=== PATIENT | male | born 1945 | race Hispanic/Latino ===

== ENCOUNTER 2017-12-10 10:37 | Emergency (ER) | payer MEDICARE ==
[~2017-12-10 10:37] MED LIST: AMLO5TAB2 PO; AMOX-429 PO; BACL20TA PO; BISA10S PR; CLON0.1T PO; CRAN200C5 PO; DOCU-132 PO; L.AC1CAP6 PO; LEVO150T11 PO; OMEP40CA37 PO; OXYB5 PO; PRAV40TA3 PO; SUNI25CA2 PO
[2017-12-10 11:49] LABS: BASOPHILS % (AUTO) 0.4 % (0.0-5.0); EOSINOPHILS % (AUTO) 6.2 % (0.0-8.0); HEMATOCRIT 35.1 % (42-54); LYMPHOCYTES % (AUTO) 25.9 % (21.0-51.0); MEAN CORPUSCULAR HEMOGLOBIN 31.3 pg (27.0-33.0); MEAN CORPUSCULAR HGB CONC 34.2 g/dL (32.0-36.0); MEAN CORPUSCULAR VOLUME 91.5 fL (79-99); MONOCYTES % (AUTO) 7.2 % (3.0-13.0); NEUTROPHILS % (AUTO) 60.3 % (40.0-77.0); NUCLEATED RED BLOOD CELLS 0.1 % (0.0-0.19); PLATELET COUNT (AUTO) 133 K/uL (130-400); RED BLOOD CELL COUNT(AUTO) 3.84 MIL/uL (4.50-6.20); RED CELL DISTRIBUTION WIDTH 17.8 % (11.0-15.5); WHITE BLOOD COUNT (AUTO) 3.6 K/uL (4.8-10.8)
[2017-12-10 11:57] LABS: CREATININE 1.6 mg/dL (0.5-1.5)
[2017-12-10 11:58] LABS: APPEARANCE,URINE Turbid (CLEAR); BILIRUBIN,URINE Negative (NEGATIVE); COLOR,URINE Dark Yellow (YELLOW); GLUCOSE, URINE (UA) Negative (NEGATIVE); KETONES,URINE Negative (NEGATIVE); LEUKOCYTE ESTERASE ,URINE Large (NEGATIVE); NITRATE,URINE Negative (NEGATIVE); OCCULT BLOOD,URINE Moderate (NEGATIVE); PROTEIN,URINE POS 1+ (NEGATIVE)
[2017-12-10 12:02] LABS: ALBUMIN 3.1 g/dL (3.5-5.0); BILIRUBIN,TOTAL 0.9 mg/dL (0.2-1.0); TOTAL PROTEIN, SERUM 6.7 g/dL (6.0-8.3)
[2017-12-10 12:32] LABS: BACTERIA,URINE Few /HPF (None Seen); RBC,URINE 0-1 /HPF (0-1); SQUAMOUS EPITHELIAL CELL,UR Rare /LPF (0-2); WBC,URINE TNTC /HPF (0-1)
[2017-12-10] MEDS ORDERED: CEFTRIAXONE SODIUM 1 GM ONE (12:43)
[2017-12-10] MEDS ORDERED: SODIUM CHLORIDE 0.9% 1000ML 1,000 ML IV ONE (12:43)
[2017-12-10] MEDS ORDERED: LEVOFLOXACIN 500 MG/D5W 100 ML 100 ML ONE (13:53)
== END 2017-12-10 14:38 | disposition home or self-care (01) ==
LOC: EDH 10:37
DX: N39.0 Urinary tract infection, site not specified (principal); J18.8 Other pneumonia, unspecified organism; Z88.8 Allergy status to other drugs, medicaments and biological substances
CPT/HCPCS: 36415; 71046; 80053; 81001; 83605; 85025; 87804 ×2; 96361; 96365; 96375; 99285; J0696; J1956; J7030

== ENCOUNTER → 2018-03-12 | Outpatient (CLI) | payer MEDICARE | END | disposition home or self-care (01) | LOC: LAB 07:42 | DX: Z51.81 Encounter for therapeutic drug level monitoring (principal); I42.7 Cardiomyopathy due to drug and external agent; C64.9 Malignant neoplasm of unspecified kidney, except renal pelvis | CPT/HCPCS: 93005 ==

== ENCOUNTER → 2018-03-20 | Outpatient (CLI) | payer MEDICARE | END | disposition home or self-care (01) | LOC: RAH 08:10 | DX: Z51.81 Encounter for therapeutic drug level monitoring (principal); I42.7 Cardiomyopathy due to drug and external agent; C64.9 Malignant neoplasm of unspecified kidney, except renal pelvis; I10 Essential (primary) hypertension | CPT/HCPCS: 93306 ==

== ENCOUNTER 2018-09-02 09:55 | Observation (INO) | payer MEDICARE ==
[~2018-09-02] VITALS: Ht 167.6 cm; Wt 80.6 kg
[~2018-09-02 09:55] MED LIST changes: -AMLO5TAB2 PO; +AMLO5TAB7 PO
[2018-09-02 10:36] LABS: BASOPHILS % (AUTO) 1.1 % (0.0-5.0); EOSINOPHILS % (AUTO) 0.4 % (0.0-8.0); HEMATOCRIT 39.4 % (42-54); LYMPHOCYTES % (AUTO) 5.4 % (21.0-51.0); MEAN CORPUSCULAR HEMOGLOBIN 31.7 pg (27.0-33.0); MEAN CORPUSCULAR HGB CONC 34.4 g/dL (32.0-36.0); MEAN CORPUSCULAR VOLUME 92.1 fL (79-99); MONOCYTES % (AUTO) 5.5 % (3.0-13.0); NEUTROPHILS % (AUTO) 87.6 % (40.0-77.0); PLATELET COUNT (AUTO) 146 K/uL (130-400); RED BLOOD CELL COUNT(AUTO) 4.27 MIL/uL (4.50-6.20); RED CELL DISTRIBUTION WIDTH 17.3 % (11.0-15.5); WHITE BLOOD COUNT (AUTO) 7.8 K/uL (4.8-10.8)
[2018-09-02 10:43] LABS: CARBON DIOXIDE 26 mmol/L (21-32); CHLORIDE 105 mmol/L (101-111); CREATININE 1.6 mg/dL (0.5-1.5); GLOMERULAR FILTR. RATE CALC 46 mL/min (>60); GLUCOSE,RANDOM 126 mg/dL (70-105); POTASSIUM 4.1 mmol/L (3.5-5.1); SODIUM SERUM 140 mmol/L (136-145); UREA NITROGEN, BLOOD 23 mg/dL (7-18)
[2018-09-02 10:47] LABS: INR 0.92 (0.85-1.15); PROTHROMBIN TIME 9.7 SEC (9.6-11.6)
[2018-09-02 10:54] LABS: ALANINE AMINOTRANSFERASE 29 U/L (12-78); ALBUMIN 3.5 g/dL (3.5-5.0); ASPARTATE AMINOTRANSFERASE 22 U/L (10-37); BILIRUBIN,TOTAL 0.9 mg/dL (0.2-1.0); CREATINE KINASE, TOTAL 90 U/L (21-232); MYOGLOBIN 137 ng/mL (10-92); TOTAL PROTEIN, SERUM 7.5 g/dL (6.0-8.3); TROPONIN I < 0.04 ng/mL (0.00-0.06)
[2018-09-02] MEDS ORDERED: CEFTRIAXONE SODIUM 1 GM ONE (11:11)
[2018-09-02] MEDS ORDERED: ONDANSETRON HCL 4 MG/2 ML VIAL ONE (11:12)
[2018-09-02] MEDS ORDERED: SODIUM CHLORIDE 0.9% 1000ML 1,000 ML IV ONE (11:12)
[2018-09-02] MEDS ORDERED: SODIUM CHLORIDE 0.9% 50 ML IV ONE (11:13)
[2018-09-02 12:04] LABS: APPEARANCE,URINE Turbid (CLEAR); BILIRUBIN,URINE Negative (NEGATIVE); COLOR,URINE Yellow (YELLOW); GLUCOSE, URINE (UA) Negative (NEGATIVE); KETONES,URINE Negative (NEGATIVE); LEUKOCYTE ESTERASE ,URINE Large (NEGATIVE); NITRATE,URINE Negative (NEGATIVE); OCCULT BLOOD,URINE Moderate (NEGATIVE); PROTEIN,URINE POS 2+ (NEGATIVE)
[2018-09-02 12:35] LABS: BACTERIA,URINE Few /HPF (None Seen); SQUAMOUS EPITHELIAL CELL,UR Few /HPF (0-2); WBC,URINE 51-100 /HPF (0-1)
[2018-09-02] MEDS: SODIUM CHLORIDE 0.9% 1000ML 1,000 ML IV SCH ×2 (14:45→22:23)
[2018-09-02 14:50] VITALS: BP 138/70
[2018-09-02] MEDS ORDERED: CRAN200C5 PO (15:04)
[2018-09-02] MEDS ORDERED: PAZO200T PO (15:04)
[2018-09-02] MEDS ORDERED: SODIUM CHLORIDE 0.9% 1000ML 1,000 ML IV SCH (15:06)
[2018-09-02] MEDS ORDERED: PROCHLORPERAZINE EDISYLATE 10 MG/2 ML VIAL IV PRN (15:15)
[2018-09-02] MEDS ORDERED: ACETAMINOPHEN 325 MG TAB PO PRN ×2 (15:15)
[2018-09-02] MEDS ORDERED: POTASSIUM CHLORIDE 20 MEQ ERTAB PO PRN (15:15)
[2018-09-02] MEDS ORDERED: LACTULOSE 20 GM/30 ML UDCUP PO PRN (15:15)
[2018-09-02] MEDS ORDERED: LIDOCAINE HCL-MPF 1% 2ML VIAL IVP PRN (15:15)
[2018-09-02] MEDS ORDERED: MAG HYDROX/AL HYDROX/SIMETH ES 30 ML SUSP UDCUP PO PRN (15:15)
[2018-09-02] MEDS ORDERED: CEFTRIAXONE SODIUM 1 GM IVP SCH (15:15)
[2018-09-02] MEDS ORDERED: POTASSIUM CHLORIDE 10% ELIXIR 20 MEQ/15 ML UDCUP PO PRN (15:15)
[2018-09-02] MEDS ORDERED: POTASSIUM CHLORIDE 20MEQ/100ML 100 ML IV PRN (15:15)
[2018-09-02 16:59] VITALS: BP 156/76
[2018-09-02 20:17] VITALS: BP 136/85
[2018-09-02] MEDS: DOCUSATE SODIUM 100 MG CAP PO SCH (20:18)
[2018-09-02] MEDS: OXYBUTYNIN CHLORIDE 5 MG TABLET PO SCH (20:19)
[2018-09-02] MEDS ORDERED: FAMOTIDINE 20MG TAB 20 MG TAB PO SCH (21:00)
[2018-09-03 00:10] VITALS: BP 126/77
[2018-09-03 03:40] VITALS: BP 126/73
[2018-09-03] MEDS: SODIUM CHLORIDE 0.9% 1000ML 1,000 ML IV SCH ×2 (03:42→10:34)
[2018-09-03 06:05] LABS: HEMATOCRIT 31.6 % (42-54); MEAN CORPUSCULAR HEMOGLOBIN 31.8 pg (27.0-33.0); MEAN CORPUSCULAR HGB CONC 34.8 g/dL (32.0-36.0); MEAN CORPUSCULAR VOLUME 91.5 fL (79-99); NUCLEATED RED BLOOD CELLS 0.1 % (0.0-0.19); PLATELET COUNT (AUTO) 114 K/uL (130-400); RED BLOOD CELL COUNT(AUTO) 3.46 MIL/uL (4.50-6.20); WHITE BLOOD COUNT (AUTO) 4.7 K/uL (4.8-10.8)
[2018-09-03 06:14] LABS: CREATININE 1.5 mg/dL (0.5-1.5)
[2018-09-03 07:00] VITALS: BP 150/77
[2018-09-03] MEDS ORDERED: LEVOTHYROXINE 150 MCG TABLET PO SCH (07:30)
[2018-09-03] MEDS ORDERED: PANTOPRAZOLE SODIUM 40 MG TABLET.DR PO SCH (08:00)
[2018-09-03] MEDS ORDERED: ENOXAPARIN SODIUM 30 MG/0.3 ML SQ SCH (09:00)
[2018-09-03] MEDS ORDERED: SULF1TAB42 PO (09:01)
[2018-09-03] MEDS: DOCUSATE SODIUM 100 MG CAP PO SCH (10:27)
[2018-09-03] MEDS: OXYBUTYNIN CHLORIDE 5 MG TABLET PO SCH (10:27)
[2018-09-03 11:00] VITALS: BP 152/77
[2018-09-04] MEDS ORDERED: BISACODYL 10 MG SUPP.RECT RC SCH (09:00)
== END 2018-09-03 13:41 | disposition home or self-care (01) ==
LOC: EDH 09:55 → 3BH 13:10
PROVIDERS: ADMIT Internal Medicine; ATTEND Internal Medicine
DX: N39.0 Urinary tract infection, site not specified (principal); E86.0 Dehydration; M62.838 Other muscle spasm; C61 Malignant neoplasm of prostate; C64.1 Malignant neoplasm of right kidney, except renal pelvis; C78.00 Secondary malignant neoplasm of unspecified lung; C79.51 Secondary malignant neoplasm of bone; G81.14 Spastic hemiplegia affecting left nondominant side; N20.0 Calculus of kidney; E78.2 Mixed hyperlipidemia; E03.9 Hypothyroidism, unspecified; K21.9 Gastro-esophageal reflux disease without esophagitis; F13.20 Sedative, hypnotic or anxiolytic dependence, uncomplicated; I70.0 Atherosclerosis of aorta; D69.6 Thrombocytopenia, unspecified; G82.50 Quadriplegia, unspecified; J18.9 Pneumonia, unspecified organism; N28.1 Cyst of kidney, acquired; N31.9 Neuromuscular dysfunction of bladder, unspecified; Z82.49 Family history of ischemic heart disease and other diseases of the circulatory system; Z83.3 Family history of diabetes mellitus; Z85.46 Personal history of malignant neoplasm of prostate; Z85.528 Personal history of other malignant neoplasm of kidney; Z87.442 Personal history of urinary calculi; Z90.5 Acquired absence of kidney
CPT/HCPCS: 36415 ×2; 71045; 74176; 80048; 80053; 81001; 82550; 83605 ×2; 83874; 84484; 85025; 85027; 85610; 85730; 87040; 87077; 87088; 87186; 87804 ×2; 93005; 96360; 96361; 96372; 99285; A4510; A6453; G0378 ×25; J0696; J1650; J2405; J7030 ×2

== ENCOUNTER 2019-01-19 00:57 | Observation (INO) | payer MEDICARE ==
[~2019-01-19] VITALS: Ht 167.6 cm; Wt 80.5 kg
[~2019-01-19 00:57] MED LIST changes: -AMLO5TAB7 PO; -AMOX-429 PO; -CLON0.1T PO; +PAZO200T PO; +SULF1TAB42 PO; -SUNI25CA2 PO
[2019-01-19 01:40] LABS: BASOPHILS % (AUTO) 0.8 % (0.0-5.0); EOSINOPHILS % (AUTO) 0.3 % (0.0-8.0); HEMATOCRIT 40.1 % (42-54); LYMPHOCYTES % (AUTO) 3.2 % (21.0-51.0); MEAN CORPUSCULAR HEMOGLOBIN 28.6 pg (27.0-33.0); MEAN CORPUSCULAR VOLUME 86.6 fL (79-99); MONOCYTES % (AUTO) 3.7 % (3.0-13.0); PLATELET COUNT (AUTO) 162 K/uL (130-400); RED BLOOD CELL COUNT(AUTO) 4.63 MIL/uL (4.50-6.20)
[2019-01-19 01:52] LABS: CREATININE 1.7 mg/dL (0.5-1.5); POTASSIUM 3.8 mmol/L (3.5-5.1)
[2019-01-19 01:57] LABS: ALBUMIN 3.2 g/dL (3.5-5.0); BILIRUBIN,TOTAL 3.4 mg/dL (0.2-1.0); TOTAL PROTEIN, SERUM 7.1 g/dL (6.0-8.3)
[2019-01-19] MEDS ORDERED: IBUPROFEN 400 MG TABLET ONE (01:58)
[2019-01-19] MEDS ORDERED: ACETAMINOPHEN 325 MG TAB ONE (01:59)
[2019-01-19 02:07] LABS: BILIRUBIN,URINE Moderate (NEGATIVE); COLOR,URINE Dark Yellow (YELLOW); GLUCOSE, URINE (UA) Negative (NEGATIVE); KETONES,URINE Trace mg/dL (NEGATIVE); LEUKOCYTE ESTERASE ,URINE Large (NEGATIVE); NITRATE,URINE Positive (NEGATIVE); OCCULT BLOOD,URINE Nonhemolyzed Trace (NEGATIVE); PROTEIN,URINE POS 2+ (NEGATIVE)
[2019-01-19 02:08] LABS: APPEARANCE,URINE SLIGHTLY CLOUDY (CLEAR)
[2019-01-19] MEDS ORDERED: SODIUM CHLORIDE 0.9% 1000ML 2,000 ML IV ONE (02:27)
[2019-01-19] MEDS ORDERED: CEFTRIAXONE SODIUM 1 GM ONE (02:27)
[2019-01-19 02:28] LABS: BACTERIA,URINE Moderate /HPF (None Seen); RBC,URINE 0-1 /HPF (0-1); SQUAMOUS EPITHELIAL CELL,UR 0-2 /HPF (0-2); WBC,URINE 51-100 /HPF (0-1)
[2019-01-19] MEDS ORDERED: SODIUM CHLORIDE 0.9% 1000ML 1,000 ML IV ONE (04:54)
[2019-01-19] MEDS ORDERED: LEVOFLOXACIN 500 MG/D5W 100 ML 100 ML ONE (04:54)
[2019-01-19] MEDS ORDERED: ONDANSETRON HCL MDV 20ML 2 MG/ML VIAL IVP PRN (05:45)
[2019-01-19] MEDS ORDERED: SODIUM CHLORIDE 0.9% 1000ML 1,000 ML IV SCH (05:45)
[2019-01-19] MEDS ORDERED: ACETAMINOPHEN EXTRA STRENGTH 500 MG TABLET PO PRN (05:45)
--- NOTE | 2019-01-19 05:50 | NUR ---
ADMISSION. PT ADMITTED INTO ROOM 432, TRANSFERRED VIA STRETCHER. AWAKE, ALERT AND RESPONSIVE. NO C/O PAIN OR DISCOMFORT AT THIS TIME. PT AND SPOUSE ORIENTED TO ROOM, CALL TIDWELL WITHIN REACH. Addendum: 01/19/19 at 0636 by JONEL BARROW RN Amended: Links added.
[2019-01-19 06:00] VITALS: BP 134/77
[2019-01-19] MEDS ORDERED: LEVOFLOXACIN 500 MG/D5W 100 ML 100 ML IV SCH (06:00)
[2019-01-19] MEDS ORDERED: AXIT5TAB PO (07:02)
[2019-01-19] MEDS ORDERED: CLON0.1T PO (07:02)
[2019-01-19] MEDS ORDERED: AMLO5TAB9 PO (07:02)
[2019-01-19 07:40] VITALS: BP 132/71
[2019-01-19] MEDS ORDERED: PANTOPRAZOLE SODIUM 40 MG TABLET.DR PO SCH (08:00)
[2019-01-19] MEDS ORDERED: BACLOFEN 10 MG TABLET PO PRN (08:45)
[2019-01-19] MEDS ORDERED: LACTULOSE 20 GM/30 ML UDCUP PO PRN (08:45)
[2019-01-19] MEDS ORDERED: MAG HYDROX/AL HYDROX/SIMETH ES 30 ML SUSP UDCUP PO PRN (08:45)
[2019-01-19] MEDS ORDERED: BISACODYL 10 MG SUPP.RECT RC SCH (09:00)
[2019-01-19] MEDS ORDERED: OXYBUTYNIN CHLORIDE 5 MG TABLET PO SCH (09:00)
[2019-01-19] MEDS ORDERED: DOCUSATE SODIUM 100 MG CAP PO SCH (09:00)
[2019-01-19 11:10] VITALS: BP 149/42
[2019-01-19] MEDS ORDERED: LEVO500T2 PO (13:44)
[2019-01-19 16:33] VITALS: BP 164/71
--- NOTE | 2019-01-19 16:41 | NUR ---
INITIAL: Met with pt and spouse this afternoon to discuss dcp. Per pt he lives w spouse, he was using a walker for short distances but has a scooter, and sh chair. Per pt his spouse is able to assist him if needed. He mentions that he feels safe and comfortable to return home at [place]. Will continue to follow and wait for Md recommendations. Addendum: 01/19/19 at 1650 by LIZZIE YORK CM Amended: Links added.
--- NOTE | 2019-01-19 17:00 | NUR ---
INSTRUCTIONS DISCHARGE INSTRUCTIONS GIVEN TO PATIENT AND SPOUSE USING TEACH BACK. NEW PRESCRIPTION PLACED IN PACKET ALONG WITH ALL PRINTED INFORMATION. IV REMOVED WITH TIP INTACT. BLEEDING CONTROLLED THEN SITE COVERED WITH GAUZE AND SECURED WITH TAPE.
[2019-01-19] MEDS ORDERED: ATORVASTATIN CALCIUM 10 MG TABLET PO SCH (21:00)
[2019-01-20] MEDS ORDERED: LEVOTHYROXINE 25 MCG TABLET PO SCH (07:30)
[2019-01-20] MEDS ORDERED: LEVOTHYROXINE 150 MCG TABLET PO SCH (07:30)
== END 2019-01-19 17:36 | disposition home or self-care (01) ==
LOC: EDH 00:57 → EDHIP 04:31 → 4AH 05:29
PROVIDERS: ADMIT Internal Medicine; ATTEND Internal Medicine
DX: E86.0 Dehydration (principal); N39.0 Urinary tract infection, site not specified; C61 Malignant neoplasm of prostate; C64.1 Malignant neoplasm of right kidney, except renal pelvis; C78.00 Secondary malignant neoplasm of unspecified lung; C79.51 Secondary malignant neoplasm of bone; D69.6 Thrombocytopenia, unspecified; E03.9 Hypothyroidism, unspecified; G81.10 Spastic hemiplegia affecting unspecified side; I70.0 Atherosclerosis of aorta; K21.9 Gastro-esophageal reflux disease without esophagitis; M51.9 Unspecified thoracic, thoracolumbar and lumbosacral intervertebral disc disorder; N20.0 Calculus of kidney; N28.1 Cyst of kidney, acquired; N31.9 Neuromuscular dysfunction of bladder, unspecified; F13.20 Sedative, hypnotic or anxiolytic dependence, uncomplicated; Z85.46 Personal history of malignant neoplasm of prostate; Z85.528 Personal history of other malignant neoplasm of kidney; Z87.442 Personal history of urinary calculi; Z92.3 Personal history of irradiation; Z83.3 Family history of diabetes mellitus; Z82.49 Family history of ischemic heart disease and other diseases of the circulatory system; Z79.899 Other long term (current) drug therapy
CPT/HCPCS: 36415; 71045; 74176; 80053; 81001; 82550; 83605 ×2; 83690; 84484; 85025; 87040 ×2; 87088; 93005; 99291; G0378 ×13; J0696; J1956; J7030 ×2

== ENCOUNTER → 2020-03-17 | Outpatient (CLI) | payer MEDICARE ==
[~2020-03-17] MED LIST changes: +LEVO500T2 PO; +OMEP40CA13 PO; -OMEP40CA37 PO; -PAZO200T PO; -SULF1TAB42 PO
[2020-03-17 12:27] LABS: BASOPHILS % (AUTO) 0.3 % (0.0-5.0); EOSINOPHILS % (AUTO) 1.6 % (0.0-8.0); HEMATOCRIT 44.8 % (42-54); LYMPHOCYTES % (AUTO) 14.7 % (21.0-51.0); MEAN CORPUSCULAR HGB CONC 32.4 g/dL (32.0-36.0); MEAN CORPUSCULAR VOLUME 83.3 fL (79-99); NEUTROPHILS % (AUTO) 79.1 % (40.0-77.0); PLATELET COUNT (AUTO) 206 K/uL (130-400); RED BLOOD CELL COUNT(AUTO) 5.38 MIL/uL (4.50-6.20); WHITE BLOOD COUNT (AUTO) 8.8 K/uL (4.8-10.8)
[2020-03-17 12:32] LABS: APPEARANCE,URINE Clear (CLEAR); BILIRUBIN,URINE Negative (NEGATIVE); COLOR,URINE Yellow (YELLOW); GLUCOSE, URINE (UA) Negative (NEGATIVE); KETONES,URINE Negative (NEGATIVE); LEUKOCYTE ESTERASE ,URINE Small (NEGATIVE); NITRATE,URINE Negative (NEGATIVE); OCCULT BLOOD,URINE Trace (NEGATIVE); PROTEIN,URINE 300 mg/dL (NEGATIVE)
[2020-03-17 12:34] LABS: CREATININE,URINE RANDOM 98 mg/dL (30-135)
[2020-03-17 12:50] LABS: ALBUMIN 2.7 g/dL (3.5-5.0); BILIRUBIN,TOTAL 0.4 mg/dL (0.2-1.0); MAGNESIUM 2.1 mg/dL (1.80-2.40); PHOSPHORUS 3.2 mg/dL (2.5-4.9)
[2020-03-17 12:58] LABS: CREATININE 1.8 mg/dL (0.5-1.5); POTASSIUM 4.3 mmol/L (3.5-5.1); T4 (THYROXINE) 9.8 ug/dL (4.7-13.3); THYROID STIMULATING HORMONE 0.53 uIU/mL (0.36-3.74); TOTAL PROTEIN, SERUM 6.7 g/dL (6.0-8.3)
[2020-03-17 13:01] LABS: RBC,URINE 0-1 /HPF (0-1); WBC,URINE 26-50 /HPF (0-1)
[2020-03-17 13:02] LABS: BACTERIA,URINE Few /HPF (None Seen); SQUAMOUS EPITHELIAL CELL,UR 0-2 /HPF (0-2)
== END | disposition home or self-care (01) ==
LOC: RAH 11:17
PROVIDERS: ATTEND Internal Medicine Medical Oncology
DX: C64.9 Malignant neoplasm of unspecified kidney, except renal pelvis (principal); Z90.5 Acquired absence of kidney
CPT/HCPCS: 36415; 78306; 80053; 81001; 82043; 82570; 83735; 84100; 84153; 84154; 84436; 84443; 85025; 87088; A9503

== ENCOUNTER 2020-04-07 08:17 | Day surgery (SDC) | payer MEDICARE ==
[2020-04-07 05:12] VITALS: BP 186/79
[2020-04-07] MEDS ORDERED: SODIUM CHLORIDE 0.9% 1000ML 1,000 ML IV ONE (08:39)
[2020-04-07] MEDS ORDERED: IOHEXOL 350 MG/ML 100ML INFUS..BTL IV ONE (11:59)
[2020-04-07 12:30] VITALS: BP 150/68
--- NOTE | 2020-04-07 13:00 | NUR ---
dc pt dc home via [place],no distress noted. pt accompanied by spouse
[2020-08-02] MEDS ORDERED: AMLO-257 PO (15:40)
== END 2020-04-07 13:00 | disposition home or self-care (01) ==
LOC: DAH 08:17 → EDSTATUS 08:30 → DAH 13:00
PROVIDERS: ATTEND Internal Medicine Medical Oncology
DX: N40.0 Benign prostatic hyperplasia without lower urinary tract symptoms (principal); R97.20 Elevated prostate specific antigen [PSA]; C64.9 Malignant neoplasm of unspecified kidney, except renal pelvis; Z90.5 Acquired absence of kidney; Z51.89 Encounter for other specified aftercare
CPT/HCPCS: 71260; 74178; 96360; 96361 ×2; A4215; A4216; A4221; A4223 ×3; A4663; J7030; Q9967

== ENCOUNTER 2020-05-07 20:32 | Emergency (ER) | payer MEDICARE ==
[2020-05-07 21:42] LABS: APPEARANCE,URINE Cloudy (CLEAR); BILIRUBIN,URINE Negative (NEGATIVE); COLOR,URINE Orange (YELLOW); GLUCOSE, URINE (UA) Negative (NEGATIVE); KETONES,URINE Negative (NEGATIVE); LEUKOCYTE ESTERASE ,URINE Small (NEGATIVE); NITRATE,URINE Negative (NEGATIVE); OCCULT BLOOD,URINE Large (NEGATIVE); PROTEIN,URINE >=1000 mg/dL (NEGATIVE)
[2020-05-07 22:08] LABS: RBC,URINE >100 /HPF (0-1)
[2020-05-07 22:09] LABS: BACTERIA,URINE Rare /HPF (None Seen)
[2020-05-07 22:10] LABS: SQUAMOUS EPITHELIAL CELL,UR Rare /HPF (0-2)
[2020-05-07] MEDS ORDERED: CEFTRIAXONE SODIUM 1 GM ONE (23:27)
[2020-05-07 23:58] LABS: BASOPHILS % (AUTO) 0.3 % (0.0-5.0); EOSINOPHILS % (AUTO) 1.4 % (0.0-8.0); HEMATOCRIT 42.3 % (42-54); LYMPHOCYTES % (AUTO) 11.3 % (21.0-51.0); MEAN CORPUSCULAR HEMOGLOBIN 27.2 pg (27.0-33.0); MEAN CORPUSCULAR HGB CONC 33.3 g/dL (32.0-36.0); MEAN CORPUSCULAR VOLUME 81.7 fL (79-99); MONOCYTES % (AUTO) 3.8 % (3.0-13.0); NEUTROPHILS % (AUTO) 82.7 % (40.0-77.0); PLATELET COUNT (AUTO) 167 K/uL (130-400); RED BLOOD CELL COUNT(AUTO) 5.18 MIL/uL (4.50-6.20); WHITE BLOOD COUNT (AUTO) 10.1 K/uL (4.8-10.8)
[2020-05-08 00:07] LABS: CREATININE 2.2 mg/dL (0.5-1.5); POTASSIUM 3.9 mmol/L (3.5-5.1)
[2020-05-08 00:11] LABS: ALBUMIN 2.6 g/dL (3.5-5.0); BILIRUBIN,TOTAL 0.4 mg/dL (0.2-1.0); TOTAL PROTEIN, SERUM 6.3 g/dL (6.0-8.3)
[2020-05-08 00:16] LABS: INR 0.87 (0.85-1.15); PARTIAL THROMBOPLASTIN TIME 28.7 SEC (26.3-35.5); PROTHROMBIN TIME 9.4 SEC (9.6-11.6)
[2020-08-02] MEDS ORDERED: AMLO-257 PO (15:40)
== END 2020-05-08 00:57 | disposition home or self-care (01) ==
LOC: EDH 20:32
DX: R31.9 Hematuria, unspecified (principal); N40.0 Benign prostatic hyperplasia without lower urinary tract symptoms; N39.0 Urinary tract infection, site not specified; Z88.8 Allergy status to other drugs, medicaments and biological substances
CPT/HCPCS: 36415; 74176; 80053; 81001; 85025; 85610; 85730; 87088; 96374; 99284; J0696

== ENCOUNTER 2020-07-04 04:50 | Emergency (ER) | payer MEDICARE ==
[2020-07-04 05:16] LABS: BASOPHILS % (AUTO) 0.2 % (0.0-5.0); EOSINOPHILS % (AUTO) 1.7 % (0.0-8.0); HEMATOCRIT 38.2 % (42-54); LYMPHOCYTES % (AUTO) 16.8 % (21.0-51.0); MEAN CORPUSCULAR HEMOGLOBIN 27.6 pg (27.0-33.0); MEAN CORPUSCULAR VOLUME 81.1 fL (79-99); NEUTROPHILS % (AUTO) 75.8 % (40.0-77.0); PLATELET COUNT (AUTO) 160 K/uL (130-400); RED BLOOD CELL COUNT(AUTO) 4.71 MIL/uL (4.50-6.20); RED CELL DISTRIBUTION WIDTH 15.2 % (11.0-15.5)
[2020-07-04 05:23] LABS: CREATININE 2.2 mg/dL (0.5-1.5); POTASSIUM 4.1 mmol/L (3.5-5.1)
[2020-07-04 05:27] LABS: ALBUMIN 2.8 g/dL (3.5-5.0); BILIRUBIN,TOTAL 0.3 mg/dL (0.2-1.0); TOTAL PROTEIN, SERUM 6.4 g/dL (6.0-8.3)
[2020-07-04] MEDS ORDERED: PROPOFOL 1000 MG/100 ML 100 ML IV ONE (06:38)
[2020-07-04] MEDS ORDERED: SODIUM BICARB 50MEQ 50ML VIAL ONE ×2 (07:56)
== END 2020-07-04 06:35 | disposition home or self-care (01) ==
LOC: EDH 04:50
DX: I12.0 Hypertensive chronic kidney disease with stage 5 chronic kidney disease or end stage renal disease (principal); G81.94 Hemiplegia, unspecified affecting left nondominant side; N18.6 End stage renal disease; Z87.891 Personal history of nicotine dependence; Z88.1 Allergy status to other antibiotic agents
CPT/HCPCS: 36415; 80053; 82550; 84484; 85025; 93005; 99284; J2704; J3490 ×2

== ENCOUNTER 2020-07-04 12:09 | Emergency (ER) | payer MEDICARE | END 2020-07-04 13:37 | disposition home or self-care (01) | LOC: EDH 12:09 | DX: G57.93 Unspecified mononeuropathy of bilateral lower limbs (principal); G81.94 Hemiplegia, unspecified affecting left nondominant side; Z87.891 Personal history of nicotine dependence; Z88.1 Allergy status to other antibiotic agents ==

== ENCOUNTER 2020-08-02 10:38 | Inpatient (IN) | payer MEDICARE ==
[~2020-08-02] VITALS: Ht 182.9 cm; Wt 79.4 kg
[2020-08-02] MEDS: CEFTRIAXONE SODIUM 1 GM IVP SCH ×2 (11:00→21:37)
[2020-08-02 11:07] LABS: BASOPHILS % (AUTO) 0.2 % (0.0-5.0); EOSINOPHILS % (AUTO) 0.1 % (0.0-8.0); HEMATOCRIT 39.3 % (42-54); LYMPHOCYTES % (AUTO) 3.7 % (21.0-51.0); MEAN CORPUSCULAR HEMOGLOBIN 27.5 pg (27.0-33.0); MEAN CORPUSCULAR HGB CONC 33.8 g/dL (32.0-36.0); MEAN CORPUSCULAR VOLUME 81.4 fL (79-99); MONOCYTES % (AUTO) 4.2 % (3.0-13.0); NEUTROPHILS % (AUTO) 91.3 % (40.0-77.0); PLATELET COUNT (AUTO) 214 K/uL (130-400); RED BLOOD CELL COUNT(AUTO) 4.83 MIL/uL (4.50-6.20); WHITE BLOOD COUNT (AUTO) 18.6 K/uL (4.8-10.8)
[2020-08-02 11:15] LABS: CARBON DIOXIDE 20 mmol/L (21-32); CHLORIDE 100 mmol/L (101-111); CREATININE 2.9 mg/dL (0.5-1.5); GLOMERULAR FILTR. RATE CALC 23 mL/min (>60); GLUCOSE,RANDOM 120 mg/dL (70-105); POTASSIUM 3.8 mmol/L (3.5-5.1); SODIUM SERUM 132 mmol/L (136-145); UREA NITROGEN, BLOOD 47 mg/dL (7-18)
[2020-08-02 11:26] LABS: ALANINE AMINOTRANSFERASE 10 U/L (12-78); ALBUMIN 1.9 g/dL (3.5-5.0); ASPARTATE AMINOTRANSFERASE 17 U/L (10-37); BILIRUBIN,TOTAL 0.4 mg/dL (0.2-1.0); CREATINE KINASE, TOTAL 51 U/L (21-232); MYOGLOBIN 351 ng/mL (10-92); TOTAL PROTEIN, SERUM 5.9 g/dL (6.0-8.3); TROPONIN I < 0.04 ng/mL (0.00-0.06)
[2020-08-02 11:28] LABS: RAPID GROUP A STREP NEGATIVE (NEGATIVE)
[2020-08-02 11:39] LABS: INR 0.95 (0.85-1.15); PARTIAL THROMBOPLASTIN TIME 33.1 SEC (26.3-35.5); PROTHROMBIN TIME 10.3 SEC (9.6-11.6)
[2020-08-02 11:45] LABS: APPEARANCE,URINE Cloudy (CLEAR); BILIRUBIN,URINE Negative (NEGATIVE); COLOR,URINE Yellow (YELLOW); GLUCOSE, URINE (UA) Negative (NEGATIVE); KETONES,URINE Negative (NEGATIVE); LEUKOCYTE ESTERASE ,URINE Moderate (NEGATIVE); NITRATE,URINE Negative (NEGATIVE); OCCULT BLOOD,URINE Small (NEGATIVE); PROTEIN,URINE 300 mg/dL (NEGATIVE); UROBILINOGEN,URINE 0.2 mg/dL (0.2-1.0)
[2020-08-02 11:52] LABS: BACTERIA,URINE Moderate /HPF (None Seen); TRANSITIONAL EPI CELLS,URINE Few /HPF (None Seen); WBC,URINE 26-50 /HPF (0-1)
[2020-08-02] MEDS ORDERED: CEFTRIAXONE SODIUM 1 GM ONE (11:56)
[2020-08-02] MEDS ORDERED: SODIUM CHLORIDE 0.9% 1000ML 1,000 ML IV ONE ×2 (11:56→16:53)
[2020-08-02] MEDS ORDERED: ACETAMINOPHEN 325 MG TAB ONE (12:09)
[2020-08-02] MEDS ORDERED: HYDRALAZINE HCL 20 MG/ML VIAL IV PRN (13:30)
[2020-08-02] MEDS ORDERED: DOXYCYCLINE 100MG+NS 250ML IV SCH (13:30)
[2020-08-02] MEDS ORDERED: DOXYCYCLINE 100MG+NS 250ML 250 ML IV SCH (14:00)
[2020-08-02] MEDS ORDERED: HEPARIN SODIUM 5000UNIT/ML 1ML VIAL SQ SCH (14:00)
[2020-08-02] MEDS ORDERED: SODIUM CHLORIDE 0.9% 1000ML 1,000 ML IV SCH (15:24)
[2020-08-02] MEDS ORDERED: ACETAMINOPHEN 325 MG TAB PO PRN ×2 (15:30)
[2020-08-02] MEDS ORDERED: DiphenhydrAMINE HCL 50 MG/ML VIAL IV PRN (15:30)
[2020-08-02] MEDS ORDERED: ONDANSETRON HCL 4 MG/2 ML VIAL IV PRN (15:30)
[2020-08-02] MEDS ORDERED: DIPHENHYDRAMINE HCL 25 MG CAPSULE PO PRN (15:30)
[2020-08-02] MEDS ORDERED: LEVO500T2 PO (15:39)
[2020-08-02] MEDS ORDERED: GABA300S PO (15:39)
[2020-08-02] MEDS ORDERED: AMLO5TAB9 PO (15:40)
[2020-08-02] MEDS ORDERED: CLON0.1T PO (15:42)
[2020-08-02] MEDS ORDERED: CLONIDINE HCL 0.1 MG TABLET PO PRN (15:45)
[2020-08-02] MEDS ORDERED: AXIT1TAB PO (15:50)
[2020-08-02] MEDS ORDERED: AXIT5TAB PO (15:50)
[2020-08-02 20:15] VITALS: BP 138/71
[2020-08-02] MEDS: METRONIDAZOLE 500 MG TABLET PO SCH (21:36)
[2020-08-02] MEDS: ATORVASTATIN CALCIUM 10 MG TABLET PO SCH (21:36)
[2020-08-02] MEDS: SODIUM CHLORIDE 0.9% 1000ML 1,000 ML IV SCH ×2 (21:37→23:53)
[2020-08-03 00:05] VITALS: BP 125/59
[2020-08-03 04:03] VITALS: BP 126/50
[2020-08-03 04:56] LABS: HEMATOCRIT 36.6 % (42-54); MEAN CORPUSCULAR HEMOGLOBIN 27.1 pg (27.0-33.0); MEAN CORPUSCULAR HGB CONC 33.1 g/dL (32.0-36.0); MEAN CORPUSCULAR VOLUME 82.1 fL (79-99); RED BLOOD CELL COUNT(AUTO) 4.46 MIL/uL (4.50-6.20); RED CELL DISTRIBUTION WIDTH 15.1 % (11.0-15.5); WHITE BLOOD COUNT (AUTO) 14.3 K/uL (4.8-10.8)
[2020-08-03 05:08] LABS: CREATININE 2.9 mg/dL (0.5-1.5); POTASSIUM 3.6 mmol/L (3.5-5.1)
[2020-08-03] MEDS: LEVOTHYROXINE 75 MCG TABLET PO SCH (06:44)
[2020-08-03] MEDS: LEVOTHYROXINE 100 MCG TABLET PO SCH (06:44)
[2020-08-03 07:58] VITALS: BP 141/68
[2020-08-03] MEDS: **HM**(L.acidoph & Paracasei,B.lactis (Probiotic) 1 EACH PO SCH (09:00)
[2020-08-03] MEDS ORDERED: FAMOTIDINE/PF 20 MG/2 ML VIAL IV SCH (09:00)
[2020-08-03] MEDS: METRONIDAZOLE 500 MG TABLET PO SCH ×3 (09:41→22:51)
[2020-08-03] MEDS: AMLODIPINE BESYLATE 5 MG TAB PO SCH (09:41)
[2020-08-03] MEDS: ENOXAPARIN SODIUM 30 MG/0.3 ML SQ SCH (09:42)
[2020-08-03] MEDS: SODIUM CHLORIDE 0.9% 1000ML 1,000 ML IV SCH ×2 (09:53→19:53)
[2020-08-03 11:31] VITALS: BP 137/73
--- NOTE | 2020-08-03 13:13 | NUR ---
1300 patient signed IM Letter, I faxed IM Letter to [phone] and placed in chart under consent tab.
[2020-08-03] MEDS: CEFTRIAXONE SODIUM 1 GM IVP SCH (15:48)
[2020-08-03 16:00] VITALS: BP 121/62
[2020-08-03] MEDS: ATORVASTATIN CALCIUM 10 MG TABLET PO SCH (19:45)
[2020-08-03 20:00] VITALS: BP 148/65
[2020-08-04] VITALS: BP 145/74
[2020-08-04 04:00] VITALS: BP 143/72
--- NOTE | 2020-08-04 04:06 | NUR ---
patient's oxygen saturation is 95% on room air.
[2020-08-04] MEDS: LEVOTHYROXINE 75 MCG TABLET PO SCH (05:00)
[2020-08-04] MEDS: LEVOTHYROXINE 100 MCG TABLET PO SCH (05:00)
[2020-08-04] MEDS: METRONIDAZOLE 500 MG TABLET PO SCH (05:00)
[2020-08-04 06:16] LABS: HEMATOCRIT 35.9 % (42-54); MEAN CORPUSCULAR HEMOGLOBIN 27.2 pg (27.0-33.0); MEAN CORPUSCULAR HGB CONC 32.6 g/dL (32.0-36.0); MEAN CORPUSCULAR VOLUME 83.5 fL (79-99); RED BLOOD CELL COUNT(AUTO) 4.3 MIL/uL (4.50-6.20); RED CELL DISTRIBUTION WIDTH 15.7 % (11.0-15.5); WHITE BLOOD COUNT (AUTO) 10.3 K/uL (4.8-10.8)
[2020-08-04 06:33] LABS: CREATININE 2.6 mg/dL (0.5-1.5); POTASSIUM 3.7 mmol/L (3.5-5.1)
[2020-08-04 08:00] VITALS: BP 139/64
--- NOTE | 2020-08-04 08:33 | NUR ---
DR. HEREDIA CALLED, UPDATE GIVEN.
[2020-08-04] MEDS ORDERED: CEPH500C2 PO (08:51)
[2020-08-04] MEDS ORDERED: METR-172 PO (08:51)
[2020-08-04] MEDS: AMLODIPINE BESYLATE 5 MG TAB PO SCH (08:57)
[2020-08-04] MEDS: ENOXAPARIN SODIUM 30 MG/0.3 ML SQ SCH (09:00)
[2020-08-04] MEDS: **HM**(L.acidoph & Paracasei,B.lactis (Probiotic) 1 EACH PO SCH (09:00)
--- NOTE | 2020-08-04 09:01 | NUR ---
Home O2 eval: Pt does not walk. Pt is wheelchair bound; unable to obtain ambulating RA sats. Addendum: 08/04/20 at 0906 by SANKET CANO RT Amended: Links added.
[2020-08-04] MEDS: CEFTRIAXONE SODIUM 1 GM IVP SCH (11:26)
[2020-08-04 11:39] VITALS: BP 147/73
--- NOTE | 2020-08-04 14:13 | NUR ---
IVF STOPPED EARLIER PER MD ORDER. BELTRAN CATH. REMOVED. SALINE LOCK REMOVED, PREPARED FOR DISCHARGE.
--- NOTE | 2020-08-04 15:10 | NUR ---
DISCHARGED NOW USING TEACH BACK. WILL GET MEDICATIONS AT [facility] [address]. HEREDIA HAS ALREADY SENT RX.[id number] AND SALINE REMOVED EARLIER . PT. HAS BEEN PARALYZED FOR > 3o years and STATES HE IS ABLE TO DO PRETTY MUCH EVERYTHING FOR HIMSELF.
== END 2020-08-04 15:16 | disposition home or self-care (01) | DRG 682 ==
LOC: EDH 10:38 → EDHIP 13:23 → OBSVTOIN 13:23 → INTOOBSV 13:23 → 3BH 20:07
PROVIDERS: ADMIT Internal Medicine; ATTEND Internal Medicine
DX: N17.9 Acute kidney failure, unspecified (principal); J69.0 Pneumonitis due to inhalation of food and vomit; N30.00 Acute cystitis without hematuria; I69.354 Hemiplegia and hemiparesis following cerebral infarction affecting left non-dominant side; C34.90 Malignant neoplasm of unspecified part of unspecified bronchus or lung; C64.9 Malignant neoplasm of unspecified kidney, except renal pelvis; K52.9 Noninfective gastroenteritis and colitis, unspecified; K21.9 Gastro-esophageal reflux disease without esophagitis; I70.0 Atherosclerosis of aorta; Z20.828 Contact with and (suspected) exposure to other viral communicable diseases; C61 Malignant neoplasm of prostate; M51.36 Other intervertebral disc degeneration, lumbar region; N18.3 Chronic kidney disease, stage 3 (moderate); N31.9 Neuromuscular dysfunction of bladder, unspecified; F17.200 Nicotine dependence, unspecified, uncomplicated; I12.9 Hypertensive chronic kidney disease with stage 1 through stage 4 chronic kidney disease, or unspecified chronic kidney disease; E78.2 Mixed hyperlipidemia; E03.9 Hypothyroidism, unspecified; D69.6 Thrombocytopenia, unspecified; Z86.14 Personal history of Methicillin resistant Staphylococcus aureus infection; Z87.440 Personal history of urinary (tract) infections; Z87.442 Personal history of urinary calculi; Z92.3 Personal history of irradiation; Z90.5 Acquired absence of kidney; Z88.8 Allergy status to other drugs, medicaments and biological substances; Z83.3 Family history of diabetes mellitus; Z80.9 Family history of malignant neoplasm, unspecified; Z82.49 Family history of ischemic heart disease and other diseases of the circulatory system
CPT/HCPCS: 36415; 71045; 74018; 74176; 80048; 80053; 81001; 82270; 82550; 83605; 83874; 83880; 84145; 84484; 85025; 85027; 85378; 85610; 85730; 86900; 86901; 87040; 87088; 87426; 87804; 87880; 93005; 94760; 99291; G0378; J0696; J1650; J7030; U0003

== ENCOUNTER → 2020-09-10 | Outpatient (CLI) | payer MEDICARE ==
[~2020-09-10] MED LIST changes: +AMLO-257 PO; +CEPH500C2 PO; +CLON0.1T PO; +GABA300S PO; -LEVO500T2 PO; +LIDOCAINE HCL 4% LTA SOL 4 ML VIAL TP ONE; +METR-172 PO; -OXYB5 PO
== END | disposition home or self-care (01) ==
LOC: WHH 09:27
PROVIDERS: ATTEND Family Medicine
DX: L89.622 Pressure ulcer of left heel, stage 2 (principal); I12.9 Hypertensive chronic kidney disease with stage 1 through stage 4 chronic kidney disease, or unspecified chronic kidney disease; N18.30 Chronic kidney disease, stage 3 unspecified; I70.0 Atherosclerosis of aorta; K21.9 Gastro-esophageal reflux disease without esophagitis; E03.9 Hypothyroidism, unspecified; G82.20 Paraplegia, unspecified; R26.89 Other abnormalities of gait and mobility; E78.2 Mixed hyperlipidemia; F17.200 Nicotine dependence, unspecified, uncomplicated; Z85.46 Personal history of malignant neoplasm of prostate; Z88.8 Allergy status to other drugs, medicaments and biological substances; Z85.528 Personal history of other malignant neoplasm of kidney; Z86.73 Personal history of transient ischemic attack (TIA), and cerebral infarction without residual deficits
CPT/HCPCS: 11042; 11045; A6021; A6197

== ENCOUNTER → 2020-09-17 | Outpatient (CLI) | payer MEDICARE ==
[~2020-09-17] MED LIST changes: +LIDOCAINE HCL 2% JELLY 5 ML TP ONE; -LIDOCAINE HCL 4% LTA SOL 4 ML VIAL TP ONE
== END | disposition home or self-care (01) ==
LOC: WHH 10:00
PROVIDERS: ATTEND Family Medicine
DX: L89.622 Pressure ulcer of left heel, stage 2 (principal); I12.9 Hypertensive chronic kidney disease with stage 1 through stage 4 chronic kidney disease, or unspecified chronic kidney disease; N18.30 Chronic kidney disease, stage 3 unspecified; I70.0 Atherosclerosis of aorta; K21.9 Gastro-esophageal reflux disease without esophagitis; E03.9 Hypothyroidism, unspecified; G82.20 Paraplegia, unspecified; R26.89 Other abnormalities of gait and mobility; E78.2 Mixed hyperlipidemia; F17.200 Nicotine dependence, unspecified, uncomplicated; Z85.46 Personal history of malignant neoplasm of prostate; Z88.8 Allergy status to other drugs, medicaments and biological substances; Z85.528 Personal history of other malignant neoplasm of kidney; Z86.73 Personal history of transient ischemic attack (TIA), and cerebral infarction without residual deficits
CPT/HCPCS: 11042; A6021; A6197

== ENCOUNTER → 2020-09-24 | Outpatient (CLI) | payer MEDICARE | END | disposition home or self-care (01) | LOC: WHH 10:30 | PROVIDERS: ATTEND Family Medicine | DX: L89.622 Pressure ulcer of left heel, stage 2 (principal); I12.9 Hypertensive chronic kidney disease with stage 1 through stage 4 chronic kidney disease, or unspecified chronic kidney disease; N18.30 Chronic kidney disease, stage 3 unspecified; I70.0 Atherosclerosis of aorta; K21.9 Gastro-esophageal reflux disease without esophagitis; E03.9 Hypothyroidism, unspecified; G82.20 Paraplegia, unspecified; R26.89 Other abnormalities of gait and mobility; E78.2 Mixed hyperlipidemia; F17.200 Nicotine dependence, unspecified, uncomplicated; Z85.46 Personal history of malignant neoplasm of prostate; Z88.8 Allergy status to other drugs, medicaments and biological substances; Z85.528 Personal history of other malignant neoplasm of kidney; Z86.73 Personal history of transient ischemic attack (TIA), and cerebral infarction without residual deficits | CPT/HCPCS: 11042; 87070; 87077; 87186 ==

== ENCOUNTER → 2020-10-08 | Outpatient (CLI) | payer MEDICARE ==
[~2020-10-08] MED LIST changes: -LIDOCAINE HCL 2% JELLY 5 ML TP ONE
== END | disposition home or self-care (01) ==
LOC: WHH 10:00
PROVIDERS: ATTEND Family Medicine
DX: L89.622 Pressure ulcer of left heel, stage 2 (principal); I12.9 Hypertensive chronic kidney disease with stage 1 through stage 4 chronic kidney disease, or unspecified chronic kidney disease; N18.30 Chronic kidney disease, stage 3 unspecified; I70.0 Atherosclerosis of aorta; K21.9 Gastro-esophageal reflux disease without esophagitis; E03.9 Hypothyroidism, unspecified; G82.20 Paraplegia, unspecified; R26.89 Other abnormalities of gait and mobility; E78.2 Mixed hyperlipidemia; F17.200 Nicotine dependence, unspecified, uncomplicated; Z85.46 Personal history of malignant neoplasm of prostate; Z88.8 Allergy status to other drugs, medicaments and biological substances; Z85.528 Personal history of other malignant neoplasm of kidney; Z86.73 Personal history of transient ischemic attack (TIA), and cerebral infarction without residual deficits
CPT/HCPCS: 11042

== ENCOUNTER → 2020-10-29 | Outpatient (CLI) | payer MEDICARE ==
[~2020-10-29] MED LIST changes: +LIDOCAINE HCL 2% JELLY 5 ML TP ONE
== END | disposition home or self-care (01) ==
LOC: WHH 10:15
PROVIDERS: ATTEND Family Medicine
DX: L89.622 Pressure ulcer of left heel, stage 2 (principal); I12.9 Hypertensive chronic kidney disease with stage 1 through stage 4 chronic kidney disease, or unspecified chronic kidney disease; N18.30 Chronic kidney disease, stage 3 unspecified; I70.0 Atherosclerosis of aorta; K21.9 Gastro-esophageal reflux disease without esophagitis; E03.9 Hypothyroidism, unspecified; G82.20 Paraplegia, unspecified; R26.89 Other abnormalities of gait and mobility; E78.2 Mixed hyperlipidemia; F17.200 Nicotine dependence, unspecified, uncomplicated; Z85.46 Personal history of malignant neoplasm of prostate; Z88.8 Allergy status to other drugs, medicaments and biological substances; Z85.528 Personal history of other malignant neoplasm of kidney; Z86.73 Personal history of transient ischemic attack (TIA), and cerebral infarction without residual deficits
CPT/HCPCS: 11042

== ENCOUNTER → 2020-11-12 | Outpatient (CLI) | payer MEDICARE ==
[~2020-11-12] MED LIST changes: -LIDOCAINE HCL 2% JELLY 5 ML TP ONE
== END | disposition home or self-care (01) ==
LOC: WHH 10:30
PROVIDERS: ATTEND Family Medicine
DX: L89.622 Pressure ulcer of left heel, stage 2 (principal); I12.9 Hypertensive chronic kidney disease with stage 1 through stage 4 chronic kidney disease, or unspecified chronic kidney disease; N18.30 Chronic kidney disease, stage 3 unspecified; I70.0 Atherosclerosis of aorta; K21.9 Gastro-esophageal reflux disease without esophagitis; E03.9 Hypothyroidism, unspecified; G82.20 Paraplegia, unspecified; R26.89 Other abnormalities of gait and mobility; E78.2 Mixed hyperlipidemia; F17.200 Nicotine dependence, unspecified, uncomplicated; Z85.46 Personal history of malignant neoplasm of prostate; Z88.8 Allergy status to other drugs, medicaments and biological substances; Z85.528 Personal history of other malignant neoplasm of kidney; Z86.73 Personal history of transient ischemic attack (TIA), and cerebral infarction without residual deficits
CPT/HCPCS: 11042

== ENCOUNTER → 2020-11-26 | Outpatient (CLI) | payer MEDICARE ==
[~2020-11-26] MED LIST changes: +LIDOCAINE HCL 2% JELLY 5 ML TP ONE
== END | disposition home or self-care (01) ==
LOC: WHH 10:00
PROVIDERS: ATTEND Family Medicine
DX: L89.622 Pressure ulcer of left heel, stage 2 (principal); I12.9 Hypertensive chronic kidney disease with stage 1 through stage 4 chronic kidney disease, or unspecified chronic kidney disease; N18.30 Chronic kidney disease, stage 3 unspecified; I70.0 Atherosclerosis of aorta; K21.9 Gastro-esophageal reflux disease without esophagitis; E03.9 Hypothyroidism, unspecified; G82.20 Paraplegia, unspecified; E78.2 Mixed hyperlipidemia; F17.200 Nicotine dependence, unspecified, uncomplicated; Z85.46 Personal history of malignant neoplasm of prostate; Z88.8 Allergy status to other drugs, medicaments and biological substances; Z85.528 Personal history of other malignant neoplasm of kidney; Z86.73 Personal history of transient ischemic attack (TIA), and cerebral infarction without residual deficits
CPT/HCPCS: 11042; 87070; 87077; 87186

== ENCOUNTER → 2020-12-02 | Outpatient (CLI) | payer MEDICARE ==
[~2020-12-02] MED LIST changes: -LIDOCAINE HCL 2% JELLY 5 ML TP ONE
== END | disposition home or self-care (01) ==
LOC: RAH 10:28
PROVIDERS: ATTEND Family Medicine
DX: M79.89 Other specified soft tissue disorders (principal); M86.8X8 Other osteomyelitis, other site; L89.620 Pressure ulcer of left heel, unstageable
CPT/HCPCS: 73650

== ENCOUNTER → 2020-12-03 | Outpatient (CLI) | payer MEDICARE ==
[~2020-12-03] MED LIST changes: +LIDOCAINE HCL 2% JELLY 5 ML TP ONE
== END | disposition home or self-care (01) ==
LOC: WHH 10:00
PROVIDERS: ATTEND Family Medicine
DX: L89.622 Pressure ulcer of left heel, stage 2 (principal); I12.9 Hypertensive chronic kidney disease with stage 1 through stage 4 chronic kidney disease, or unspecified chronic kidney disease; N18.30 Chronic kidney disease, stage 3 unspecified; R26.89 Other abnormalities of gait and mobility; I70.0 Atherosclerosis of aorta; K21.9 Gastro-esophageal reflux disease without esophagitis; E03.9 Hypothyroidism, unspecified; G82.20 Paraplegia, unspecified; E78.2 Mixed hyperlipidemia; F17.200 Nicotine dependence, unspecified, uncomplicated; Z85.46 Personal history of malignant neoplasm of prostate; Z88.8 Allergy status to other drugs, medicaments and biological substances; Z85.528 Personal history of other malignant neoplasm of kidney; Z86.73 Personal history of transient ischemic attack (TIA), and cerebral infarction without residual deficits
CPT/HCPCS: 11042

== ENCOUNTER → 2020-12-10 | Outpatient (CLI) | payer MEDICARE | END | disposition home or self-care (01) | LOC: WHH 09:45 | PROVIDERS: ATTEND Family Medicine | DX: L89.622 Pressure ulcer of left heel, stage 2 (principal); I12.9 Hypertensive chronic kidney disease with stage 1 through stage 4 chronic kidney disease, or unspecified chronic kidney disease; N18.30 Chronic kidney disease, stage 3 unspecified; R26.89 Other abnormalities of gait and mobility; I70.0 Atherosclerosis of aorta; K21.9 Gastro-esophageal reflux disease without esophagitis; E03.9 Hypothyroidism, unspecified; G82.20 Paraplegia, unspecified; F17.200 Nicotine dependence, unspecified, uncomplicated; Z85.46 Personal history of malignant neoplasm of prostate; Z88.8 Allergy status to other drugs, medicaments and biological substances; Z85.528 Personal history of other malignant neoplasm of kidney; Z86.73 Personal history of transient ischemic attack (TIA), and cerebral infarction without residual deficits | CPT/HCPCS: 11042 ==

== ENCOUNTER → 2020-12-31 | Outpatient (CLI) | payer MEDICARE ==
[~2020-12-31] MED LIST changes: -LIDOCAINE HCL 2% JELLY 5 ML TP ONE
== END | disposition home or self-care (01) ==
LOC: WHH 10:00
PROVIDERS: ATTEND Family Medicine
DX: L89.622 Pressure ulcer of left heel, stage 2 (principal); I12.9 Hypertensive chronic kidney disease with stage 1 through stage 4 chronic kidney disease, or unspecified chronic kidney disease; N18.30 Chronic kidney disease, stage 3 unspecified; R26.89 Other abnormalities of gait and mobility; I70.0 Atherosclerosis of aorta; K21.9 Gastro-esophageal reflux disease without esophagitis; E03.9 Hypothyroidism, unspecified; G82.20 Paraplegia, unspecified; F17.200 Nicotine dependence, unspecified, uncomplicated; Z85.46 Personal history of malignant neoplasm of prostate; Z88.8 Allergy status to other drugs, medicaments and biological substances; Z85.528 Personal history of other malignant neoplasm of kidney; Z86.73 Personal history of transient ischemic attack (TIA), and cerebral infarction without residual deficits
CPT/HCPCS: 11042; A6021; A6197

== ENCOUNTER → 2021-01-14 | Outpatient (CLI) | payer MEDICARE ==
[~2021-01-14] MED LIST changes: +LIDOCAINE HCL 2% JELLY 5 ML TP ONE
== END | disposition home or self-care (01) ==
LOC: WHH 10:00
PROVIDERS: ATTEND Family Medicine
DX: L89.624 Pressure ulcer of left heel, stage 4 (principal); I12.9 Hypertensive chronic kidney disease with stage 1 through stage 4 chronic kidney disease, or unspecified chronic kidney disease; N18.30 Chronic kidney disease, stage 3 unspecified; R26.89 Other abnormalities of gait and mobility; I70.0 Atherosclerosis of aorta; K21.9 Gastro-esophageal reflux disease without esophagitis; E78.2 Mixed hyperlipidemia; M86.8X8 Other osteomyelitis, other site; M79.89 Other specified soft tissue disorders; E03.9 Hypothyroidism, unspecified; G82.20 Paraplegia, unspecified; F17.200 Nicotine dependence, unspecified, uncomplicated; Z85.46 Personal history of malignant neoplasm of prostate; Z88.8 Allergy status to other drugs, medicaments and biological substances; Z85.528 Personal history of other malignant neoplasm of kidney; Z86.73 Personal history of transient ischemic attack (TIA), and cerebral infarction without residual deficits
CPT/HCPCS: 97607; A6211; A6234; A9272; G0463

== ENCOUNTER 2021-01-21 03:24 | Emergency (ER) | payer MEDICARE ==
[~2021-01-21 03:24] MED LIST changes: -LIDOCAINE HCL 2% JELLY 5 ML TP ONE
[2021-01-21 03:36] LABS: BASOPHILS % (AUTO) 0.1 % (0.0-5.0); EOSINOPHILS % (AUTO) 3.6 % (0.0-8.0); HEMATOCRIT 32.5 % (42-54); LYMPHOCYTES % (AUTO) 8.3 % (21.0-51.0); MEAN CORPUSCULAR HEMOGLOBIN 27.7 pg (27.0-33.0); MEAN CORPUSCULAR HGB CONC 33.8 g/dL (32.0-36.0); MEAN CORPUSCULAR VOLUME 81.9 fL (79-99); MONOCYTES % (AUTO) 5.2 % (3.0-13.0); NEUTROPHILS % (AUTO) 82.5 % (40.0-77.0); PLATELET COUNT (AUTO) 132 K/uL (130-400); RED BLOOD CELL COUNT(AUTO) 3.97 MIL/uL (4.50-6.20); RED CELL DISTRIBUTION WIDTH 16.5 % (11.0-15.5); WHITE BLOOD COUNT (AUTO) 8.7 K/uL (4.8-10.8)
[2021-01-21 03:50] LABS: INR 0.93 (0.85-1.15); PROTHROMBIN TIME 10.2 SEC (9.6-11.6)
[2021-01-21 03:52] LABS: CREATININE 2.2 mg/dL (0.5-1.5); PARTIAL THROMBOPLASTIN TIME 26.7 SEC (26.3-35.5); POTASSIUM 4.7 mmol/L (3.5-5.1)
[2021-01-21 03:55] LABS: ALBUMIN 2.5 g/dL (3.5-5.0); BILIRUBIN,TOTAL 0.4 mg/dL (0.2-1.0); CRP QUANTITATIVE 20.3 mg/L (0.00-9.0); TOTAL PROTEIN, SERUM 6.1 g/dL (6.0-8.3)
== END 2021-01-21 06:41 | disposition home or self-care (01) ==
LOC: EDH 03:24
DX: R06.00 Dyspnea, unspecified (principal); I10 Essential (primary) hypertension; Z88.1 Allergy status to other antibiotic agents; E86.0 Dehydration; E86.1 Hypovolemia
CPT/HCPCS: 36415; 71045; 80053; 83605; 83880; 84484; 85025; 85378; 85610; 85730; 86140; 93005; 96360; 96361

== ENCOUNTER → 2021-01-21 | Outpatient (CLI) | payer MEDICARE | END | disposition home or self-care (01) | LOC: WHH 08:45 | PROVIDERS: ATTEND Family Medicine | DX: L89.624 Pressure ulcer of left heel, stage 4 (principal); I12.9 Hypertensive chronic kidney disease with stage 1 through stage 4 chronic kidney disease, or unspecified chronic kidney disease; N18.30 Chronic kidney disease, stage 3 unspecified; R26.89 Other abnormalities of gait and mobility; I70.0 Atherosclerosis of aorta; K21.9 Gastro-esophageal reflux disease without esophagitis; E78.2 Mixed hyperlipidemia; M86.8X8 Other osteomyelitis, other site; M79.89 Other specified soft tissue disorders; E03.9 Hypothyroidism, unspecified; G82.50 Quadriplegia, unspecified; F17.200 Nicotine dependence, unspecified, uncomplicated; Z85.46 Personal history of malignant neoplasm of prostate; Z88.8 Allergy status to other drugs, medicaments and biological substances; Z85.528 Personal history of other malignant neoplasm of kidney; Z86.73 Personal history of transient ischemic attack (TIA), and cerebral infarction without residual deficits; Z90.5 Acquired absence of kidney | CPT/HCPCS: 11042; 97607; A6211; A6234; A9272 ==

== ENCOUNTER → 2021-01-28 | Outpatient (CLI) | payer MEDICARE ==
[~2021-01-28] MED LIST changes: +LIDOCAINE HCL 2% JELLY 5 ML TP ONE
== END | disposition home or self-care (01) ==
LOC: WHH 09:30
PROVIDERS: ATTEND Family Medicine
DX: L89.624 Pressure ulcer of left heel, stage 4 (principal); I12.9 Hypertensive chronic kidney disease with stage 1 through stage 4 chronic kidney disease, or unspecified chronic kidney disease; N18.30 Chronic kidney disease, stage 3 unspecified; R26.89 Other abnormalities of gait and mobility; I70.0 Atherosclerosis of aorta; K21.9 Gastro-esophageal reflux disease without esophagitis; E78.2 Mixed hyperlipidemia; M86.8X8 Other osteomyelitis, other site; M79.89 Other specified soft tissue disorders; E03.9 Hypothyroidism, unspecified; G82.50 Quadriplegia, unspecified; F17.200 Nicotine dependence, unspecified, uncomplicated; Z85.46 Personal history of malignant neoplasm of prostate; Z88.8 Allergy status to other drugs, medicaments and biological substances; Z85.528 Personal history of other malignant neoplasm of kidney; Z86.73 Personal history of transient ischemic attack (TIA), and cerebral infarction without residual deficits; Z90.5 Acquired absence of kidney
CPT/HCPCS: 11042; 97607; A6211; A6234; A9272

== ENCOUNTER → 2021-02-05 | Outpatient (CLI) | payer MEDICARE | END | disposition home or self-care (01) | LOC: WHH 08:44 | PROVIDERS: ATTEND Family Medicine | DX: L89.624 Pressure ulcer of left heel, stage 4 (principal); I12.9 Hypertensive chronic kidney disease with stage 1 through stage 4 chronic kidney disease, or unspecified chronic kidney disease; N18.30 Chronic kidney disease, stage 3 unspecified; R26.89 Other abnormalities of gait and mobility; I70.0 Atherosclerosis of aorta; K21.9 Gastro-esophageal reflux disease without esophagitis; E78.2 Mixed hyperlipidemia; M86.8X8 Other osteomyelitis, other site; M79.89 Other specified soft tissue disorders; E03.9 Hypothyroidism, unspecified; G82.50 Quadriplegia, unspecified; F17.200 Nicotine dependence, unspecified, uncomplicated; Z85.46 Personal history of malignant neoplasm of prostate; Z88.8 Allergy status to other drugs, medicaments and biological substances; Z85.528 Personal history of other malignant neoplasm of kidney; Z86.73 Personal history of transient ischemic attack (TIA), and cerebral infarction without residual deficits; Z90.5 Acquired absence of kidney | CPT/HCPCS: 11042; A6021; A6197 ==

== ENCOUNTER → 2021-02-11 | Outpatient (CLI) | payer MEDICARE | END | disposition home or self-care (01) | LOC: WHH 10:45 | PROVIDERS: ATTEND Family Medicine | DX: L89.624 Pressure ulcer of left heel, stage 4 (principal); I12.9 Hypertensive chronic kidney disease with stage 1 through stage 4 chronic kidney disease, or unspecified chronic kidney disease; N18.30 Chronic kidney disease, stage 3 unspecified; R26.89 Other abnormalities of gait and mobility; I70.0 Atherosclerosis of aorta; K21.9 Gastro-esophageal reflux disease without esophagitis; E78.2 Mixed hyperlipidemia; M86.8X8 Other osteomyelitis, other site; M79.89 Other specified soft tissue disorders; E03.9 Hypothyroidism, unspecified; G82.50 Quadriplegia, unspecified; F17.200 Nicotine dependence, unspecified, uncomplicated; Z85.46 Personal history of malignant neoplasm of prostate; Z88.8 Allergy status to other drugs, medicaments and biological substances; Z85.528 Personal history of other malignant neoplasm of kidney; Z86.73 Personal history of transient ischemic attack (TIA), and cerebral infarction without residual deficits; Z90.5 Acquired absence of kidney | CPT/HCPCS: 11042; A6021; A6197 ==

== ENCOUNTER → 2021-02-18 | Outpatient (CLI) | payer MEDICARE ==
[~2021-02-18] MED LIST changes: -LIDOCAINE HCL 2% JELLY 5 ML TP ONE
== END | disposition home or self-care (01) ==
LOC: WHH 09:30
PROVIDERS: ATTEND Family Medicine
DX: L89.624 Pressure ulcer of left heel, stage 4 (principal); I12.9 Hypertensive chronic kidney disease with stage 1 through stage 4 chronic kidney disease, or unspecified chronic kidney disease; N18.30 Chronic kidney disease, stage 3 unspecified; R26.89 Other abnormalities of gait and mobility; I70.0 Atherosclerosis of aorta; K21.9 Gastro-esophageal reflux disease without esophagitis; E78.2 Mixed hyperlipidemia; M86.8X8 Other osteomyelitis, other site; M79.89 Other specified soft tissue disorders; E03.9 Hypothyroidism, unspecified; G82.50 Quadriplegia, unspecified; F17.200 Nicotine dependence, unspecified, uncomplicated; Z85.46 Personal history of malignant neoplasm of prostate; Z88.8 Allergy status to other drugs, medicaments and biological substances; Z85.528 Personal history of other malignant neoplasm of kidney; Z86.73 Personal history of transient ischemic attack (TIA), and cerebral infarction without residual deficits; Z90.5 Acquired absence of kidney
CPT/HCPCS: A6021; A6197; G0463

== ENCOUNTER → 2021-03-04 | Outpatient (CLI) | payer MEDICARE ==
[~2021-03-04] MED LIST changes: +LIDOCAINE HCL 2% JELLY 5 ML TP ONE
== END | disposition home or self-care (01) ==
LOC: WHH 09:55
PROVIDERS: ATTEND Family Medicine
DX: L89.624 Pressure ulcer of left heel, stage 4 (principal); I12.9 Hypertensive chronic kidney disease with stage 1 through stage 4 chronic kidney disease, or unspecified chronic kidney disease; N18.30 Chronic kidney disease, stage 3 unspecified; R26.89 Other abnormalities of gait and mobility; I70.0 Atherosclerosis of aorta; K21.9 Gastro-esophageal reflux disease without esophagitis; E78.2 Mixed hyperlipidemia; M86.8X8 Other osteomyelitis, other site; M79.89 Other specified soft tissue disorders; E03.9 Hypothyroidism, unspecified; G82.50 Quadriplegia, unspecified; F17.200 Nicotine dependence, unspecified, uncomplicated; Z85.46 Personal history of malignant neoplasm of prostate; Z88.8 Allergy status to other drugs, medicaments and biological substances; Z85.528 Personal history of other malignant neoplasm of kidney; Z86.73 Personal history of transient ischemic attack (TIA), and cerebral infarction without residual deficits; Z90.5 Acquired absence of kidney
CPT/HCPCS: 97605; G0463

== ENCOUNTER → 2021-03-11 | Outpatient (CLI) | payer MEDICARE | END | disposition home or self-care (01) | LOC: WHH 09:55 | PROVIDERS: ATTEND Family Medicine | DX: L89.624 Pressure ulcer of left heel, stage 4 (principal); I12.9 Hypertensive chronic kidney disease with stage 1 through stage 4 chronic kidney disease, or unspecified chronic kidney disease; N18.30 Chronic kidney disease, stage 3 unspecified; R26.89 Other abnormalities of gait and mobility; I70.0 Atherosclerosis of aorta; K21.9 Gastro-esophageal reflux disease without esophagitis; E78.2 Mixed hyperlipidemia; M86.8X8 Other osteomyelitis, other site; M79.89 Other specified soft tissue disorders; E03.9 Hypothyroidism, unspecified; G82.50 Quadriplegia, unspecified; F17.200 Nicotine dependence, unspecified, uncomplicated; Z85.46 Personal history of malignant neoplasm of prostate; Z88.8 Allergy status to other drugs, medicaments and biological substances; Z85.528 Personal history of other malignant neoplasm of kidney; Z86.73 Personal history of transient ischemic attack (TIA), and cerebral infarction without residual deficits; Z90.5 Acquired absence of kidney | CPT/HCPCS: 97605; G0463 ==

== ENCOUNTER → 2021-03-25 | Outpatient (CLI) | payer MEDICARE | END | disposition home or self-care (01) | LOC: WHH 10:00 | PROVIDERS: ATTEND Family Medicine | DX: L89.624 Pressure ulcer of left heel, stage 4 (principal); I12.9 Hypertensive chronic kidney disease with stage 1 through stage 4 chronic kidney disease, or unspecified chronic kidney disease; N18.30 Chronic kidney disease, stage 3 unspecified; R26.89 Other abnormalities of gait and mobility; I70.0 Atherosclerosis of aorta; K21.9 Gastro-esophageal reflux disease without esophagitis; E78.2 Mixed hyperlipidemia; M86.8X8 Other osteomyelitis, other site; M79.89 Other specified soft tissue disorders; E03.9 Hypothyroidism, unspecified; G82.50 Quadriplegia, unspecified; F17.200 Nicotine dependence, unspecified, uncomplicated; Z85.46 Personal history of malignant neoplasm of prostate; Z88.8 Allergy status to other drugs, medicaments and biological substances; Z85.528 Personal history of other malignant neoplasm of kidney; Z86.73 Personal history of transient ischemic attack (TIA), and cerebral infarction without residual deficits; Z90.5 Acquired absence of kidney | CPT/HCPCS: A6021; G0463 ==

== ENCOUNTER → 2021-04-01 | Outpatient (CLI) | payer MEDICARE | END | disposition home or self-care (01) | LOC: WHH 10:05 | PROVIDERS: ATTEND Family Medicine | DX: L89.624 Pressure ulcer of left heel, stage 4 (principal); I12.9 Hypertensive chronic kidney disease with stage 1 through stage 4 chronic kidney disease, or unspecified chronic kidney disease; N18.30 Chronic kidney disease, stage 3 unspecified; R26.89 Other abnormalities of gait and mobility; I70.0 Atherosclerosis of aorta; K21.9 Gastro-esophageal reflux disease without esophagitis; E78.2 Mixed hyperlipidemia; M86.8X8 Other osteomyelitis, other site; M79.89 Other specified soft tissue disorders; E03.9 Hypothyroidism, unspecified; G82.50 Quadriplegia, unspecified; F17.200 Nicotine dependence, unspecified, uncomplicated; Z85.46 Personal history of malignant neoplasm of prostate; Z88.8 Allergy status to other drugs, medicaments and biological substances; Z85.528 Personal history of other malignant neoplasm of kidney; Z86.73 Personal history of transient ischemic attack (TIA), and cerebral infarction without residual deficits; Z90.5 Acquired absence of kidney | CPT/HCPCS: G0463 ==

== ENCOUNTER → 2021-04-15 | Outpatient (CLI) | payer MEDICARE ==
[~2021-04-15] MED LIST changes: -LIDOCAINE HCL 2% JELLY 5 ML TP ONE; +LIDOCAINE HCL 4% LTA SOL 4 ML VIAL TP ONE
== END | disposition home or self-care (01) ==
LOC: WHH 10:14
PROVIDERS: ATTEND Family Medicine
DX: L89.624 Pressure ulcer of left heel, stage 4 (principal); I12.9 Hypertensive chronic kidney disease with stage 1 through stage 4 chronic kidney disease, or unspecified chronic kidney disease; N18.30 Chronic kidney disease, stage 3 unspecified; R26.89 Other abnormalities of gait and mobility; I70.0 Atherosclerosis of aorta; K21.9 Gastro-esophageal reflux disease without esophagitis; E78.2 Mixed hyperlipidemia; M86.8X8 Other osteomyelitis, other site; M79.89 Other specified soft tissue disorders; E03.9 Hypothyroidism, unspecified; G82.50 Quadriplegia, unspecified; F17.200 Nicotine dependence, unspecified, uncomplicated; Z85.46 Personal history of malignant neoplasm of prostate; Z88.8 Allergy status to other drugs, medicaments and biological substances; Z85.528 Personal history of other malignant neoplasm of kidney; Z86.73 Personal history of transient ischemic attack (TIA), and cerebral infarction without residual deficits; Z90.5 Acquired absence of kidney
CPT/HCPCS: G0463

== ENCOUNTER 2021-04-17 21:20 | Emergency (ER) | payer MEDICARE ==
[~2021-04-17 21:20] MED LIST changes: -LIDOCAINE HCL 4% LTA SOL 4 ML VIAL TP ONE
[2021-04-17 22:24] LABS: APPEARANCE,URINE Cloudy (CLEAR); BILIRUBIN,URINE Negative (NEGATIVE); COLOR,URINE Yellow (YELLOW); GLUCOSE, URINE (UA) Negative (NEGATIVE); KETONES,URINE Negative (NEGATIVE); LEUKOCYTE ESTERASE ,URINE Large (NEGATIVE); NITRATE,URINE Negative (NEGATIVE); OCCULT BLOOD,URINE Trace (NEGATIVE); PH,URINE 5.5 (5.0-8.0); PROTEIN,URINE 300 mg/dL (NEGATIVE); UROBILINOGEN,URINE 0.2 mg/dL (0.2-1.0)
[2021-04-17 22:26] LABS: BASOPHILS % (AUTO) 0.1 % (0.0-5.0); EOSINOPHILS % (AUTO) 0.6 % (0.0-8.0); HEMATOCRIT 34.3 % (42-54); LYMPHOCYTES % (AUTO) 6.3 % (21.0-51.0); MEAN CORPUSCULAR HEMOGLOBIN 28.8 pg (27.0-33.0); MEAN CORPUSCULAR HGB CONC 35.6 g/dL (32.0-36.0); MEAN CORPUSCULAR VOLUME 80.9 fL (79-99); MONOCYTES % (AUTO) 5.7 % (3.0-13.0); NEUTROPHILS % (AUTO) 86.8 % (40.0-77.0); PLATELET COUNT (AUTO) 150 K/uL (130-400); RED BLOOD CELL COUNT(AUTO) 4.24 MIL/uL (4.50-6.20); RED CELL DISTRIBUTION WIDTH 14.4 % (11.0-15.5); WHITE BLOOD COUNT (AUTO) 10.6 K/uL (4.8-10.8)
[2021-04-17 22:36] LABS: CREATININE 2.6 mg/dL (0.5-1.5); POTASSIUM 4.1 mmol/L (3.5-5.1)
[2021-04-17 22:41] LABS: ALBUMIN 2.6 g/dL (3.5-5.0); BILIRUBIN,TOTAL 0.4 mg/dL (0.2-1.0); TOTAL PROTEIN, SERUM 5.8 g/dL (6.0-8.3)
[2021-04-17 22:43] LABS: BACTERIA,URINE Many /HPF (None Seen); SQUAMOUS EPITHELIAL CELL,UR Few /HPF (0-2); WBC,URINE 51-100 /HPF (0-1)
[2021-04-17] MEDS ORDERED: CEFTRIAXONE SODIUM 1 GM ONE (23:19)
== END 2021-04-17 23:42 | disposition home or self-care (01) ==
LOC: EDH 21:20
DX: N39.0 Urinary tract infection, site not specified (principal); I12.9 Hypertensive chronic kidney disease with stage 1 through stage 4 chronic kidney disease, or unspecified chronic kidney disease; N18.9 Chronic kidney disease, unspecified; Z88.8 Allergy status to other drugs, medicaments and biological substances
CPT/HCPCS: 36415; 80053; 81001; 85025; 87077; 87088; 87186; 96372; 99283; J0696

== ENCOUNTER → 2021-06-10 | Outpatient (CLI) | payer MEDICARE ==
[~2021-06-10] MED LIST changes: +LIDOCAINE HCL 4% LTA SOL 4 ML VIAL TP ONE; -OMEP40CA13 PO; +OMEP40CA21 PO
== END | disposition home or self-care (01) ==
LOC: WHH 09:04
PROVIDERS: ATTEND Family Medicine
DX: L89.624 Pressure ulcer of left heel, stage 4 (principal); I12.9 Hypertensive chronic kidney disease with stage 1 through stage 4 chronic kidney disease, or unspecified chronic kidney disease; N18.30 Chronic kidney disease, stage 3 unspecified; R26.89 Other abnormalities of gait and mobility; I70.0 Atherosclerosis of aorta; K21.9 Gastro-esophageal reflux disease without esophagitis; E78.2 Mixed hyperlipidemia; M86.8X8 Other osteomyelitis, other site; M79.89 Other specified soft tissue disorders; E03.9 Hypothyroidism, unspecified; G82.50 Quadriplegia, unspecified; F17.200 Nicotine dependence, unspecified, uncomplicated; Z85.46 Personal history of malignant neoplasm of prostate; Z88.8 Allergy status to other drugs, medicaments and biological substances; Z85.528 Personal history of other malignant neoplasm of kidney; Z86.73 Personal history of transient ischemic attack (TIA), and cerebral infarction without residual deficits; Z90.5 Acquired absence of kidney
CPT/HCPCS: A4450; G0463

== ENCOUNTER → 2021-07-15 | Outpatient (CLI) | payer MEDICARE ==
[~2021-07-15] MED LIST changes: -AMLO-257 PO; +AMLODIPINE PO; +AUGM250L PO; -CEPH500C2 PO; +CLON0.1T2 PO; +CPAP NASAL; -CRAN200C5 PO; +CYAN10007 IJ; +DOCU-133 PO; +DUTA0.5C37 PO; +ERGO500093 PO; +FERR325T22 PO; +FERS325 PO; +FINA5TAB41 PO; -GABA300S PO; +HYDR-4153 PO; +ISOS30TA92 PO; -L.AC1CAP6 PO; +LACT10SO62 PO; +LACT10SO9 PO; +LENV14CA PO; +LENV4CAP PO; +LEVO150C4 PO; +LEVO200T10 PO; -METR-172 PO; +ONDA4TAB10 PO; +OXYB15TA19 PO; +PANT40TA54 PO; +PRAV20TA4 PO; -PRAV40TA3 PO; +SODI650T PO; +VITAMIN D PO
== END | disposition home or self-care (01) ==
LOC: WHH 10:22
PROVIDERS: ATTEND Family Medicine
DX: L89.624 Pressure ulcer of left heel, stage 4 (principal); S80.821A Blister (nonthermal), right lower leg, initial encounter; I12.9 Hypertensive chronic kidney disease with stage 1 through stage 4 chronic kidney disease, or unspecified chronic kidney disease; N18.30 Chronic kidney disease, stage 3 unspecified; R26.89 Other abnormalities of gait and mobility; I70.0 Atherosclerosis of aorta; K21.9 Gastro-esophageal reflux disease without esophagitis; E78.2 Mixed hyperlipidemia; M86.8X8 Other osteomyelitis, other site; M79.89 Other specified soft tissue disorders; E03.9 Hypothyroidism, unspecified; G82.50 Quadriplegia, unspecified; F17.200 Nicotine dependence, unspecified, uncomplicated; Z85.46 Personal history of malignant neoplasm of prostate; Z88.8 Allergy status to other drugs, medicaments and biological substances; Z85.528 Personal history of other malignant neoplasm of kidney; Z86.73 Personal history of transient ischemic attack (TIA), and cerebral infarction without residual deficits; Z90.5 Acquired absence of kidney; X58.XXXA Exposure to other specified factors, initial encounter; Y93.89 Activity, other specified; Y92.89 Other specified places as the place of occurrence of the external cause; Y99.8 Other external cause status
CPT/HCPCS: 11042; A6021; A6197

== ENCOUNTER → 2021-07-22 | Outpatient (CLI) | payer MEDICARE | END | disposition home or self-care (01) | LOC: WHH 09:57 | PROVIDERS: ATTEND Family Medicine | DX: L89.624 Pressure ulcer of left heel, stage 4 (principal); S80.821D Blister (nonthermal), right lower leg, subsequent encounter; S20.322A Blister (nonthermal) of left front wall of thorax, initial encounter; I12.9 Hypertensive chronic kidney disease with stage 1 through stage 4 chronic kidney disease, or unspecified chronic kidney disease; N18.30 Chronic kidney disease, stage 3 unspecified; R26.89 Other abnormalities of gait and mobility; I70.0 Atherosclerosis of aorta; K21.9 Gastro-esophageal reflux disease without esophagitis; E78.2 Mixed hyperlipidemia; M86.8X8 Other osteomyelitis, other site; M79.89 Other specified soft tissue disorders; E03.9 Hypothyroidism, unspecified; G82.50 Quadriplegia, unspecified; F17.200 Nicotine dependence, unspecified, uncomplicated; Z85.46 Personal history of malignant neoplasm of prostate; Z88.8 Allergy status to other drugs, medicaments and biological substances; Z85.528 Personal history of other malignant neoplasm of kidney; Z86.73 Personal history of transient ischemic attack (TIA), and cerebral infarction without residual deficits; Z90.5 Acquired absence of kidney; X58.XXXD Exposure to other specified factors, subsequent encounter; X58.XXXA Exposure to other specified factors, initial encounter; Y92.89 Other specified places as the place of occurrence of the external cause; Y93.89 Activity, other specified; Y99.8 Other external cause status | CPT/HCPCS: A6021; A6197; G0463 ==

== ENCOUNTER 2021-08-10 15:14 | Inpatient (IN) | payer MEDICARE ==
[~2021-08-10] VITALS: Ht 167.6 cm; Wt 72.0 kg
[~2021-08-10 15:14] MED LIST changes: -LIDOCAINE HCL 4% LTA SOL 4 ML VIAL TP ONE
[2021-08-10 15:41] VITALS: BP 132/70
[2021-08-10 15:55] LABS: BASOPHILS % (AUTO) 0.2 % (0.0-5.0); HEMATOCRIT 26.1 % (42-54); LYMPHOCYTES % (AUTO) 8.5 % (21.0-51.0); MEAN CORPUSCULAR HEMOGLOBIN 31.6 pg (27.0-33.0); MEAN CORPUSCULAR HGB CONC 34.9 g/dL (32.0-36.0); MEAN CORPUSCULAR VOLUME 90.6 fL (79-99); MONOCYTES % (AUTO) 4.9 % (3.0-13.0); NEUTROPHILS % (AUTO) 75.9 % (40.0-77.0); PLATELET COUNT (AUTO) 144 K/uL (130-400); RED BLOOD CELL COUNT(AUTO) 2.88 MIL/uL (4.50-6.20); RED CELL DISTRIBUTION WIDTH 14.1 % (11.0-15.5); WHITE BLOOD COUNT (AUTO) 8.6 K/uL (4.8-10.8)
[2021-08-10 16:48] VITALS: BP 157/83
[2021-08-10 16:48] LABS: CREATININE 3.8 mg/dL (0.5-1.5); POTASSIUM 5.9 mmol/L (3.5-5.1)
[2021-08-10 16:53] LABS: ALBUMIN 2.2 g/dL (3.5-5.0); BILIRUBIN,TOTAL 0.4 mg/dL (0.2-1.0); TOTAL PROTEIN, SERUM 5.7 g/dL (6.0-8.3)
[2021-08-10 17:07] LABS: APPEARANCE,URINE Clear (CLEAR); BILIRUBIN,URINE Negative (NEGATIVE); COLOR,URINE Yellow (YELLOW); GLUCOSE, URINE (UA) Negative (NEGATIVE); KETONES,URINE Negative (NEGATIVE); LEUKOCYTE ESTERASE ,URINE Small (NEGATIVE); NITRATE,URINE Negative (NEGATIVE); OCCULT BLOOD,URINE Trace (NEGATIVE); PROTEIN,URINE 300 mg/dL (NEGATIVE); UROBILINOGEN,URINE 0.2 mg/dL (0.2-1.0)
[2021-08-10 17:25] LABS: BACTERIA,URINE Few /HPF (None Seen); MUCUS,URINE Few LPF (None Seen); SQUAMOUS EPITHELIAL CELL,UR Rare /HPF (0-2)
[2021-08-10] MEDS ORDERED: 0.9%NACL 1000ML 1,000 ML IV ONE (18:00)
[2021-08-10] MEDS ORDERED: ZOSYN 3.375GM+NS 50ML 3.38 GM in 0.9%NACL 50ML 50 ML IV SCH (18:00)
[2021-08-10] MEDS ORDERED: 0.9%NACL 50ML 50 ML IV ONE (18:00)
[2021-08-10] MEDS ORDERED: ZOSYN 3.375GM +NS 50ML IV ONE (18:00)
[2021-08-10] MEDS ORDERED: ACETAMINOPHEN 325 MG TAB PO PRN ×3 (18:30→22:30)
[2021-08-10] MEDS ORDERED: ONDANSETRON 4MG INJ IVP PRN (18:30)
[2021-08-10] MEDS: 0.9%NACL 1000ML 1,000 ML IV SCH (18:30)
[2021-08-10] MEDS: ZOSYN 3.375GM +NS 50ML IV SCH ×2 (18:36→18:56)
[2021-08-10] MEDS: 0.9%NACL 50ML 50 ML IV SCH ×2 (18:37→18:56)
[2021-08-10] MEDS ORDERED: OXYB15TA19 PO (18:57)
[2021-08-10] MEDS ORDERED: FERS325 PO (18:58)
[2021-08-10] MEDS ORDERED: ERGO500093 PO (19:00)
[2021-08-10] MEDS ORDERED: PRAV20TA4 PO (19:00)
[2021-08-10] MEDS ORDERED: BACL20TA PO (19:01)
[2021-08-10] MEDS ORDERED: BISA10SU11 RC (19:03)
[2021-08-10] MEDS ORDERED: LACT10SO5 PO ×2 (19:03→22:13)
[2021-08-10] MEDS ORDERED: DOCU100C33 PO (19:04)
[2021-08-10 19:46] VITALS: BP 171/87
[2021-08-10] MEDS ORDERED: AMLODIPINE 5 MG TAB PO PRN (22:00)
[2021-08-10] MEDS ORDERED: BACLOFEN 10 MG TABLET PO PRN (22:00)
[2021-08-10] MEDS ORDERED: AMOX-426 PO (22:09)
[2021-08-10] MEDS ORDERED: GUAIFENESIN-DM 200/20 MG 10 ML PO PRN (22:30)
[2021-08-10] MEDS ORDERED: POTASSIUM CHLORIDE 10% ELIXIR 20 MEQ/15 ML UDCUP PO PRN (22:30)
[2021-08-10] MEDS ORDERED: ONDANSETRON 4MG INJ IV PRN (22:30)
[2021-08-10] MEDS ORDERED: POTASSIUM CHLORIDE 10MEQ/100ML 100 ML IV PRN ×2 (22:30)
[2021-08-10] MEDS ORDERED: DIPHENHYDRAMINE HCL 25 MG CAPSULE PO PRN (22:30)
[2021-08-10] MEDS ORDERED: ALBUTEROL 0.083% 2.5 MG/3 ML INH IH PRN (22:30)
[2021-08-10] MEDS ORDERED: DiphenhydrAMINE HCL 50 MG/ML VIAL IV PRN (22:30)
[2021-08-10] MEDS ORDERED: MAG/ALUM/SIMETH 30 ML UDCUP PO PRN (22:30)
[2021-08-10] MEDS ORDERED: LIDOCAINE HCL-MPF 1% 2ML VIAL IV PRN ×2 (22:30)
[2021-08-10] MEDS ORDERED: KCL 20 MEQ ERTAB PO PRN (22:30)
[2021-08-10] MEDS ORDERED: FUROSEMIDE 40MG VIAL IV ONE (23:00)
[2021-08-11] VITALS (8 sets, daily range): BP systolic 147–178; BP diastolic 64–92
[2021-08-11] MEDS: 0.9%NACL 1000ML 1,000 ML IV SCH ×2 (04:26→17:18)
[2021-08-11] MEDS: ZOSYN 3.375GM +NS 50ML IV SCH ×2 (05:22→17:15)
[2021-08-11] MEDS: 0.9%NACL 50ML 50 ML IV SCH ×2 (05:22→17:15)
[2021-08-11 07:27] LABS: HEMATOCRIT 24.8 % (42-54); MEAN CORPUSCULAR HEMOGLOBIN 31.9 pg (27.0-33.0); MEAN CORPUSCULAR HGB CONC 35.5 g/dL (32.0-36.0); MEAN CORPUSCULAR VOLUME 89.9 fL (79-99); RED BLOOD CELL COUNT(AUTO) 2.76 MIL/uL (4.50-6.20); RED CELL DISTRIBUTION WIDTH 14.1 % (11.0-15.5); WHITE BLOOD COUNT (AUTO) 10.2 K/uL (4.8-10.8)
[2021-08-11] MEDS: SODIUM BICARBONATE 650 MG TAB PO SCH (08:01)
[2021-08-11] MEDS: ISOSORBIDE MONO 30MG SR TAB PO SCH ×2 (08:01→20:27)
[2021-08-11] MEDS: FINASTERIDE 5 MG TABLET PO SCH ×2 (08:01→20:27)
[2021-08-11] MEDS: FERROUS SULFATE 325 MG TABLET.DR PO SCH (08:01)
[2021-08-11] MEDS: HYDRALAZINE 25MG TABLET PO SCH ×2 (08:01→20:27)
[2021-08-11] MEDS: PANTOPRAZOLE 40 MG TAB DR PO SCH (08:01)
[2021-08-11] MEDS: FUROSEMIDE 40MG VIAL IV SCH (08:02)
[2021-08-11] MEDS: ENOXAPARIN SODIUM 30 MG/0.3 ML SQ SCH (08:03)
[2021-08-11] MEDS: LACTULOSE 20 GM/30 ML UDCUP PO PRN ×2 (08:05→20:52)
[2021-08-11] MEDS ORDERED: LEVO200T10 PO (08:32)
[2021-08-11] MEDS ORDERED: SODI650T PO (08:32)
[2021-08-11] MEDS ORDERED: KEYTRUDA IV (08:32)
[2021-08-11] MEDS ORDERED: CLON0.1T PO (08:32)
[2021-08-11] MEDS ORDERED: LACT10SO5 PO (08:36)
[2021-08-11] MEDS ORDERED: OXYBUTYNIN 5 MG TAB.SR.24H PO SCH (09:00)
[2021-08-11 09:27] LABS: CREATININE 3.8 mg/dL (0.5-1.5); POTASSIUM 5.8 mmol/L (3.5-5.1)
[2021-08-11] MEDS ORDERED: HYDROCORTISONE 1% CREAM 28G TP SCH (11:00)
[2021-08-11] MEDS: KAYEXALATE 15GM/60ML PO SCH (13:19)
[2021-08-11] MEDS: OXYBUTYNIN 5 MG TAB.SR.24H PO SCH (20:26)
[2021-08-11] MEDS: ATORVASTATIN 10 MG TABLET PO SCH (20:26)
[2021-08-11] MEDS: DOCUSATE SODIUM 100 MG CAP PO SCH (20:27)
[2021-08-11] MEDS: BISACODYL 10 MG SUPP.RECT RC SCH (20:28)
[2021-08-11] MEDS: **HM** DUTASTERIDE 0.5MG PO SCH (21:00)
[2021-08-11] MEDS: CPAP NASAL SCH (21:00)
[2021-08-12] VITALS: BP 132/66
[2021-08-12] MEDS ORDERED: TRAZODONE HCL 50 MG TAB ONE (00:13)
[2021-08-12] MEDS: 0.9%NACL 1000ML 1,000 ML IV SCH ×2 (00:30→12:45)
[2021-08-12 04:00] VITALS: BP 127/62
[2021-08-12 04:00] LABS: HEMATOCRIT 23.3 % (42-54); MEAN CORPUSCULAR HEMOGLOBIN 30.9 pg (27.0-33.0); MEAN CORPUSCULAR HGB CONC 33.9 g/dL (32.0-36.0); RED BLOOD CELL COUNT(AUTO) 2.56 MIL/uL (4.50-6.20); RED CELL DISTRIBUTION WIDTH 14.4 % (11.0-15.5); WHITE BLOOD COUNT (AUTO) 6.1 K/uL (4.8-10.8)
[2021-08-12 04:16] LABS: CREATININE 3.8 mg/dL (0.5-1.5); POTASSIUM 5.1 mmol/L (3.5-5.1)
[2021-08-12] MEDS: ZOSYN 3.375GM +NS 50ML IV SCH ×2 (05:30→17:25)
[2021-08-12 08:00] VITALS: BP 123/61
[2021-08-12] MEDS ORDERED: LACTULOSE 20 GM/30 ML UDCUP PO SCH (09:00)
[2021-08-12] MEDS ORDERED: LEVOTHYROXINE 100 MCG TABLET PO SCH (09:00)
[2021-08-12] MEDS ORDERED: BISACODYL 10 MG SUPP.RECT RC SCH (09:00)
[2021-08-12] MEDS: HONEY 1 APPL/ML TUBE TP SCH (09:24)
[2021-08-12] MEDS: ENOXAPARIN SODIUM 30 MG/0.3 ML SQ SCH (09:25)
[2021-08-12] MEDS: SODIUM BICARBONATE 650 MG TAB PO SCH (09:26)
[2021-08-12] MEDS: ISOSORBIDE MONO 30MG SR TAB PO SCH ×2 (09:26→20:34)
[2021-08-12] MEDS: PANTOPRAZOLE 40 MG TAB DR PO SCH (09:26)
[2021-08-12] MEDS: HYDRALAZINE 25MG TABLET PO SCH ×2 (09:26→20:34)
[2021-08-12] MEDS: FERROUS SULFATE 325 MG TABLET.DR PO SCH (09:26)
[2021-08-12] MEDS: FINASTERIDE 5 MG TABLET PO SCH ×2 (09:27→20:34)
[2021-08-12] MEDS: FUROSEMIDE 40MG VIAL IV SCH (09:28)
[2021-08-12 12:07] VITALS: BP 98/51
[2021-08-12] MEDS: KAYEXALATE 15GM/60ML PO SCH (12:42)
[2021-08-12] MEDS ORDERED: LEVO500T89 PO (13:58)
[2021-08-12 16:00] VITALS: BP 135/69
[2021-08-12] MEDS: 0.9%NACL 50ML 50 ML IV SCH (17:25)
[2021-08-12] MEDS ORDERED: HYDROCORTISONE 1% CREAM 28G TP PRN (19:30)
[2021-08-12 20:00] VITALS: BP 143/69
[2021-08-12] MEDS: DOCUSATE SODIUM 100 MG CAP PO SCH (20:33)
[2021-08-12] MEDS: OXYBUTYNIN 5 MG TAB.SR.24H PO SCH (20:33)
[2021-08-12] MEDS: ATORVASTATIN 10 MG TABLET PO SCH (20:34)
[2021-08-12] MEDS: CPAP NASAL SCH (20:35)
[2021-08-12] MEDS: BISACODYL 10 MG SUPP.RECT RC SCH (20:35)
[2021-08-12] MEDS: **HM** DUTASTERIDE 0.5MG PO SCH (20:43)
[2021-08-13] VITALS: BP 139/57
[2021-08-13 04:00] VITALS: BP 121/58
[2021-08-13] MEDS: 0.9%NACL 50ML 50 ML IV SCH (04:25)
[2021-08-13] MEDS: ZOSYN 3.375GM +NS 50ML IV SCH (04:25)
[2021-08-13] MEDS: 0.9%NACL 1000ML 1,000 ML IV SCH (04:28)
[2021-08-13 05:51] LABS: HEMATOCRIT 24.4 % (42-54); MEAN CORPUSCULAR HEMOGLOBIN 31.3 pg (27.0-33.0); MEAN CORPUSCULAR HGB CONC 32.8 g/dL (32.0-36.0); MEAN CORPUSCULAR VOLUME 95.3 fL (79-99); RED BLOOD CELL COUNT(AUTO) 2.56 MIL/uL (4.50-6.20); RED CELL DISTRIBUTION WIDTH 15.1 % (11.0-15.5); WHITE BLOOD COUNT (AUTO) 8.1 K/uL (4.8-10.8)
[2021-08-13 06:08] LABS: POTASSIUM 4.5 mmol/L (3.5-5.1)
[2021-08-13 07:58] VITALS: BP 152/75
[2021-08-13] MEDS: PANTOPRAZOLE 40 MG TAB DR PO SCH (08:00)
[2021-08-13] MEDS ORDERED: SULF1TAB42 PO (08:35)
[2021-08-13] MEDS: ENOXAPARIN SODIUM 30 MG/0.3 ML SQ SCH (09:00)
[2021-08-13] MEDS: HONEY 1 APPL/ML TUBE TP SCH (09:00)
[2021-08-13] MEDS: ISOSORBIDE MONO 30MG SR TAB PO SCH (10:23)
[2021-08-13] MEDS: SODIUM BICARBONATE 650 MG TAB PO SCH (10:23)
[2021-08-13] MEDS: HYDRALAZINE 25MG TABLET PO SCH (10:23)
[2021-08-13] MEDS: FINASTERIDE 5 MG TABLET PO SCH (10:23)
[2021-08-13] MEDS: FERROUS SULFATE 325 MG TABLET.DR PO SCH (10:23)
== END 2021-08-13 11:49 | disposition home or self-care (01) | DRG 177 ==
LOC: EDH 15:14 → OBSVTOIN 17:40 → EDHIP 17:40 → 4BH 08-11 03:00
PROVIDERS: ADMIT Internal Medicine; ATTEND Internal Medicine
DX: J69.0 Pneumonitis due to inhalation of food and vomit (principal); G82.50 Quadriplegia, unspecified; D84.821 Immunodeficiency due to drugs; E87.1 Hypo-osmolality and hyponatremia; G95.29 Other cord compression; C79.51 Secondary malignant neoplasm of bone; L97.409 Non-pressure chronic ulcer of unspecified heel and midfoot with unspecified severity; N18.4 Chronic kidney disease, stage 4 (severe); N39.0 Urinary tract infection, site not specified; Z16.12 Extended spectrum beta lactamase (ESBL) resistance; N31.9 Neuromuscular dysfunction of bladder, unspecified; E86.0 Dehydration; I12.9 Hypertensive chronic kidney disease with stage 1 through stage 4 chronic kidney disease, or unspecified chronic kidney disease; Z20.822 Contact with and (suspected) exposure to COVID-19; D69.6 Thrombocytopenia, unspecified; E03.9 Hypothyroidism, unspecified; E78.2 Mixed hyperlipidemia; E87.70 Fluid overload, unspecified; G47.33 Obstructive sleep apnea (adult) (pediatric); I70.0 Atherosclerosis of aorta; K21.9 Gastro-esophageal reflux disease without esophagitis; M51.9 Unspecified thoracic, thoracolumbar and lumbosacral intervertebral disc disorder; T45.1X5A Adverse effect of antineoplastic and immunosuppressive drugs, initial encounter; Y92.89 Other specified places as the place of occurrence of the external cause; Z88.5 Allergy status to narcotic agent; Z88.8 Allergy status to other drugs, medicaments and biological substances; Z92.3 Personal history of irradiation; Z90.5 Acquired absence of kidney; Z87.440 Personal history of urinary (tract) infections; Z87.442 Personal history of urinary calculi; Z85.528 Personal history of other malignant neoplasm of kidney; Z85.46 Personal history of malignant neoplasm of prostate; Z83.3 Family history of diabetes mellitus; Z82.49 Family history of ischemic heart disease and other diseases of the circulatory system
CPT/HCPCS: 36415; 71045; 80048; 80053; 81001; 83605; 84484; 85025; 85027; 87040; 87077; 87088; 87186; 87635; 93005; G0378; J1650; J1940; J2543; J7030

== ENCOUNTER → 2021-08-26 | Outpatient (CLI) | payer MEDICARE ==
[~2021-08-26] MED LIST changes: -AUGM250L PO; +BISA10SU11 RC; -CLON0.1T2 PO; -DOCU-132 PO; -DOCU-133 PO; +DOCU100C33 PO; -FERR325T22 PO; -FINA5TAB41 PO; +KEYTRUDA IV; +LACT10SO5 PO; -LACT10SO62 PO; -LACT10SO9 PO; -LENV14CA PO; -LEVO150C4 PO; -LEVO150T11 PO; +LEVO500T89 PO; -ONDA4TAB10 PO; -PANT40TA54 PO; +SULF1TAB42 PO; -VITAMIN D PO
== END | disposition home or self-care (01) ==
LOC: WHH 09:41
PROVIDERS: ATTEND Family Medicine
DX: S80.821D Blister (nonthermal), right lower leg, subsequent encounter (principal); S70.321D Blister (nonthermal), right thigh, subsequent encounter; S60.521A Blister (nonthermal) of right hand, initial encounter; S50.321A Blister (nonthermal) of right elbow, initial encounter; S90.821A Blister (nonthermal), right foot, initial encounter; L89.624 Pressure ulcer of left heel, stage 4; I12.9 Hypertensive chronic kidney disease with stage 1 through stage 4 chronic kidney disease, or unspecified chronic kidney disease; N18.30 Chronic kidney disease, stage 3 unspecified; I70.0 Atherosclerosis of aorta; E03.9 Hypothyroidism, unspecified; E78.2 Mixed hyperlipidemia; K21.9 Gastro-esophageal reflux disease without esophagitis; G82.20 Paraplegia, unspecified; G82.50 Quadriplegia, unspecified; R26.89 Other abnormalities of gait and mobility; M86.8X8 Other osteomyelitis, other site; M79.89 Other specified soft tissue disorders; Z90.5 Acquired absence of kidney; Z87.891 Personal history of nicotine dependence; Z85.46 Personal history of malignant neoplasm of prostate; Z85.118 Personal history of other malignant neoplasm of bronchus and lung; Z85.830 Personal history of malignant neoplasm of bone; Z85.528 Personal history of other malignant neoplasm of kidney; Z98.890 Other specified postprocedural states; Z79.899 Other long term (current) drug therapy; X58.XXXD Exposure to other specified factors, subsequent encounter; X58.XXXA Exposure to other specified factors, initial encounter; Y99.8 Other external cause status; Y93.89 Activity, other specified; Y92.89 Other specified places as the place of occurrence of the external cause
CPT/HCPCS: A6021; A6197; G0463

== ENCOUNTER 2021-09-06 21:58 | Inpatient (IN) | payer MEDICARE ==
[~2021-09-06] VITALS: Ht 167.6 cm; Wt 72.2 kg
[2021-09-06] MEDS ORDERED: 0.9%NACL 1000ML 1,000 ML IV ONE (22:30)
[2021-09-06] MEDS ORDERED: ZOSYN 3.375GM+NS 50ML 3.38 GM in 0.9%NACL 50ML 50 ML IV ONE (22:30)
[2021-09-06] MEDS ORDERED: ACETAMINOPHEN 500 MG TABLET PO ONE (22:30)
[2021-09-06 23:17] LABS: BASOPHILS % (AUTO) 0.2 % (0.0-5.0); EOSINOPHILS % (AUTO) 2.3 % (0.0-8.0); HEMATOCRIT 27.7 % (42-54); LYMPHOCYTES % (AUTO) 3.4 % (21.0-51.0); MEAN CORPUSCULAR HEMOGLOBIN 30.7 pg (27.0-33.0); MEAN CORPUSCULAR HGB CONC 32.1 g/dL (32.0-36.0); MEAN CORPUSCULAR VOLUME 95.5 fL (79-99); MONOCYTES % (AUTO) 4.3 % (3.0-13.0); NEUTROPHILS % (AUTO) 89.4 % (40.0-77.0); PLATELET COUNT (AUTO) 202 K/uL (130-400); RED CELL DISTRIBUTION WIDTH 14.2 % (11.0-15.5); WHITE BLOOD COUNT (AUTO) 12.5 K/uL (4.8-10.8)
[2021-09-06 23:28] LABS: CREATININE 4.8 mg/dL (0.5-1.5); POTASSIUM 5.4 mmol/L (3.5-5.1)
[2021-09-06 23:33] LABS: ALBUMIN 2.2 g/dL (3.5-5.0); BILIRUBIN,TOTAL 0.2 mg/dL (0.2-1.0)
[2021-09-07] MEDS ORDERED: ZOSYN 3.375GM+NS 50ML 50 ML ONE (00:14)
[2021-09-07] MEDS ORDERED: 0.9%NACL 50ML 50 ML IV ONE (00:15)
[2021-09-07] MEDS ORDERED: ACETAMINOPHEN 500 MG TABLET ONE (00:21)
[2021-09-07 00:25] LABS: APPEARANCE,URINE Turbid (CLEAR); BILIRUBIN,URINE Negative (NEGATIVE); COLOR,URINE Yellow (YELLOW); GLUCOSE, URINE (UA) Negative (NEGATIVE); KETONES,URINE Negative (NEGATIVE); LEUKOCYTE ESTERASE ,URINE Large (NEGATIVE); NITRATE,URINE Negative (NEGATIVE); OCCULT BLOOD,URINE Moderate (NEGATIVE); PROTEIN,URINE 300 mg/dL (NEGATIVE); UROBILINOGEN,URINE 0.2 mg/dL (0.2-1.0)
[2021-09-07 00:45] LABS: BACTERIA,URINE Few /HPF (None Seen); WBC,URINE 51-100 /HPF (0-1)
[2021-09-07 00:48] LABS: YEAST,URINE BUDDING Rare /HPF (None Seen)
[2021-09-07] MEDS ORDERED: ONDANSETRON 4MG INJ IV PRN (04:00)
[2021-09-07] MEDS ORDERED: LACTATED RINGERS 1000ML 1,000 ML IV SCH (04:00)
[2021-09-07] MEDS ORDERED: ACETAMINOPHEN 325 MG TAB PO PRN (04:00)
[2021-09-07] MEDS ORDERED: CLONIDINE HCL 0.1 MG TABLET PO PRN (04:30)
[2021-09-07] MEDS: ZOSYN 3.375GM+NS 50ML 50 ML IV SCH ×2 (05:04→17:18)
[2021-09-07] MEDS: LEVOTHYROXINE 100 MCG TABLET PO SCH (07:59)
[2021-09-07] MEDS: FAMOTIDINE 20MG TAB PO SCH (08:40)
[2021-09-07] MEDS: SODIUM BICARBONATE 650 MG TAB PO SCH ×2 (08:40→20:42)
[2021-09-07] MEDS: FERROUS GLUCONATE 325 MG TABLET PO SCH (08:40)
[2021-09-07] MEDS: LACTULOSE 20 GM/30 ML UDCUP PO SCH (08:40)
[2021-09-07] MEDS: HEPARIN 5,000 UNIT VIAL SQ SCH ×3 (08:40→20:41)
[2021-09-07 08:55] LABS: CREATININE 4.7 mg/dL (0.5-1.5); POTASSIUM 5.5 mmol/L (3.5-5.1)
[2021-09-07] MEDS ORDERED: OXYBUTYNIN 5 MG TAB.SR.24H PO SCH (09:00)
[2021-09-07] MEDS ORDERED: ERGO500093 PO (09:01)
[2021-09-07] MEDS ORDERED: BACL20TA PO (09:02)
[2021-09-07] MEDS ORDERED: CYAN10007 IJ (09:02)
[2021-09-07] MEDS ORDERED: ISOS30TA92 PO (09:02)
[2021-09-07] MEDS ORDERED: DUTA0.5C37 PO (09:02)
[2021-09-07] MEDS ORDERED: BISA10SU11 RC (09:02)
[2021-09-07] MEDS ORDERED: OMEP40CA21 PO (09:02)
[2021-09-07] MEDS ORDERED: SODI650T PO (09:02)
[2021-09-07] MEDS ORDERED: LENV14CA PO (09:02)
[2021-09-07] MEDS ORDERED: AMLO-257 PO (09:02)
[2021-09-07] MEDS ORDERED: FURO40TA5 PO (09:02)
[2021-09-07] MEDS ORDERED: HYDR-4153 PO (09:02)
[2021-09-07] MEDS ORDERED: KAYEXALATE 15GM/60ML ONE (11:12)
[2021-09-07] MEDS: 0.9%NACL 1000ML 1,000 ML IV SCH ×2 (12:24→20:30)
[2021-09-07] MEDS ORDERED: KAYEXALATE 15GM/60ML PO ONE (13:15)
[2021-09-07 18:36] VITALS: BP 141/61
[2021-09-07 20:41] VITALS: BP 136/64
[2021-09-07] MEDS: BISACODYL 10 MG SUPP.RECT RC SCH (20:42)
[2021-09-07] MEDS: ATORVASTATIN 10 MG TABLET PO SCH (20:42)
[2021-09-07] MEDS: DOCUSATE SODIUM 100 MG CAP PO SCH (20:42)
[2021-09-07 23:11] VITALS: BP 135/63
[2021-09-08 04:13] VITALS: BP 141/64
[2021-09-08 05:02] LABS: BASOPHILS % (AUTO) 0.3 % (0.0-5.0); EOSINOPHILS % (AUTO) 17.8 % (0.0-8.0); HEMATOCRIT 24.2 % (42-54); LYMPHOCYTES % (AUTO) 10.5 % (21.0-51.0); MEAN CORPUSCULAR HEMOGLOBIN 30.9 pg (27.0-33.0); MEAN CORPUSCULAR HGB CONC 31.8 g/dL (32.0-36.0); MEAN CORPUSCULAR VOLUME 97.2 fL (79-99); NEUTROPHILS % (AUTO) 66.9 % (40.0-77.0); PLATELET COUNT (AUTO) 168 K/uL (130-400); RED BLOOD CELL COUNT(AUTO) 2.49 MIL/uL (4.50-6.20); RED CELL DISTRIBUTION WIDTH 14.3 % (11.0-15.5); WHITE BLOOD COUNT (AUTO) 6.6 K/uL (4.8-10.8)
[2021-09-08 05:14] LABS: % IRON SATURATION 15.1 % (30-44)
[2021-09-08] MEDS: 0.9%NACL 1000ML 1,000 ML IV SCH ×2 (05:25→19:29)
[2021-09-08] MEDS: ZOSYN 3.375GM+NS 50ML 50 ML IV SCH (05:25)
[2021-09-08] MEDS: LEVOTHYROXINE 100 MCG TABLET PO SCH (05:25)
[2021-09-08 05:31] LABS: CREATININE 4.5 mg/dL (0.5-1.5); PHOSPHORUS 5.7 mg/dL (2.5-4.9); URIC ACID 5.8 mg/dL (2.6-7.2)
[2021-09-08 08:00] VITALS: BP 160/85
[2021-09-08] MEDS: FAMOTIDINE 20MG TAB PO SCH (08:59)
[2021-09-08] MEDS: PANTOPRAZOLE 40 MG TAB DR PO SCH (08:59)
[2021-09-08] MEDS: FERROUS GLUCONATE 325 MG TABLET PO SCH (08:59)
[2021-09-08] MEDS: SODIUM BICARBONATE 650 MG TAB PO SCH ×3 (08:59→20:30)
[2021-09-08] MEDS: HEPARIN 5,000 UNIT VIAL SQ SCH ×3 (09:00→20:37)
[2021-09-08 11:44] VITALS: BP 170/78
[2021-09-08] MEDS ORDERED: DOCU100C33 PO (12:08)
[2021-09-08] MEDS ORDERED: SODI650T PO (12:08)
[2021-09-08] MEDS ORDERED: FOLI-74 PO (12:08)
[2021-09-08] MEDS ORDERED: ASCO500T20 PO (12:08)
[2021-09-08] MEDS ORDERED: LACT10SO62 PO (12:08)
[2021-09-08] MEDS ORDERED: BACLOFEN 10 MG TABLET PO PRN (13:30)
[2021-09-08] MEDS: CEFTRIAXONE 1G VIAL IVP SCH (14:44)
[2021-09-08] MEDS: FUROSEMIDE 40MG VIAL IV SCH ×2 (14:44→19:52)
[2021-09-08 16:00] VITALS: BP 160/92
[2021-09-08] MEDS ORDERED: AMLODIPINE 5 MG TAB ONE (19:28)
[2021-09-08] MEDS: BISACODYL 10 MG SUPP.RECT RC SCH (19:51)
[2021-09-08] MEDS: DOCUSATE SODIUM 100 MG CAP PO SCH (19:51)
[2021-09-08] MEDS: ATORVASTATIN 10 MG TABLET PO SCH (19:52)
[2021-09-08 19:54] VITALS: BP 166/85
[2021-09-08] MEDS: AMLODIPINE 5 MG TAB PO SCH (20:30)
[2021-09-08] MEDS ORDERED: TRIAMCINOLONE ACETONIDE 0.1% CREAM 15GM TP SCH (21:00)
[2021-09-09 00:14] VITALS: BP 158/86
[2021-09-09 03:50] VITALS: BP 165/90
[2021-09-09 05:09] LABS: HEMATOCRIT 26.3 % (42-54); MEAN CORPUSCULAR HEMOGLOBIN 30.9 pg (27.0-33.0); MEAN CORPUSCULAR HGB CONC 31.9 g/dL (32.0-36.0); MEAN CORPUSCULAR VOLUME 96.7 fL (79-99); RED BLOOD CELL COUNT(AUTO) 2.72 MIL/uL (4.50-6.20); RED CELL DISTRIBUTION WIDTH 13.9 % (11.0-15.5); WHITE BLOOD COUNT (AUTO) 7.6 K/uL (4.8-10.8)
[2021-09-09] MEDS: LEVOTHYROXINE 100 MCG TABLET PO SCH (05:30)
[2021-09-09 05:31] LABS: CREATININE 4.6 mg/dL (0.5-1.5); POTASSIUM 4.4 mmol/L (3.5-5.1)
[2021-09-09] MEDS: FUROSEMIDE 40MG VIAL IV SCH ×3 (06:44→21:05)
[2021-09-09 07:57] VITALS: BP 183/95
[2021-09-09] MEDS: LACTULOSE 20 GM/30 ML UDCUP PO SCH (08:35)
[2021-09-09] MEDS: FERROUS GLUCONATE 325 MG TABLET PO SCH (08:37)
[2021-09-09] MEDS: FAMOTIDINE 20MG TAB PO SCH (08:37)
[2021-09-09] MEDS: AMLODIPINE 5 MG TAB PO SCH ×2 (08:37→21:02)
[2021-09-09] MEDS: SODIUM BICARBONATE 650 MG TAB PO SCH ×4 (08:38→21:02)
[2021-09-09] MEDS: HEPARIN 5,000 UNIT VIAL SQ SCH ×2 (08:48→21:04)
[2021-09-09] MEDS: PANTOPRAZOLE 40 MG TAB DR PO SCH (08:52)
[2021-09-09] MEDS: HONEY 1 APPL/ML TUBE TP SCH (09:00)
[2021-09-09] MEDS ORDERED: IRON SUCROSE COMPLEX 100 MG in 0.9%NACL 50ML 50 ML IV SCH (09:00)
[2021-09-09] MEDS ORDERED: PEMBROLIZUMAB IVP SCH (09:00)
[2021-09-09 12:00] VITALS: BP 178/83
[2021-09-09] MEDS: SOLU-MEDROL 125MG VIAL IVP SCH (14:38)
[2021-09-09] MEDS: CEFTRIAXONE 1G VIAL IVP SCH (14:38)
[2021-09-09] MEDS: TRIAMCINOLONE ACETONIDE 0.1% CREAM 15GM TP SCH ×2 (14:39→21:03)
[2021-09-09] MEDS: 0.9%NACL 1000ML 1,000 ML IV SCH (15:29)
[2021-09-09 16:00] VITALS: BP 175/95
[2021-09-09 19:28] VITALS: BP 178/88
[2021-09-09] MEDS: DOCUSATE SODIUM 100 MG CAP PO SCH (21:02)
[2021-09-09] MEDS: BISACODYL 10 MG SUPP.RECT RC SCH (21:03)
[2021-09-09] MEDS: ATORVASTATIN 10 MG TABLET PO SCH (21:05)
[2021-09-10 00:25] VITALS: BP 161/77
[2021-09-10 04:27] LABS: HEMATOCRIT 29.6 % (42-54); MEAN CORPUSCULAR HEMOGLOBIN 30.9 pg (27.0-33.0); MEAN CORPUSCULAR HGB CONC 32.8 g/dL (32.0-36.0); MEAN CORPUSCULAR VOLUME 94.3 fL (79-99); RED BLOOD CELL COUNT(AUTO) 3.14 MIL/uL (4.50-6.20); RED CELL DISTRIBUTION WIDTH 13.5 % (11.0-15.5); WHITE BLOOD COUNT (AUTO) 3.7 K/uL (4.8-10.8)
[2021-09-10 04:42] LABS: CREATININE 4.1 mg/dL (0.5-1.5); POTASSIUM 4.3 mmol/L (3.5-5.1)
[2021-09-10] MEDS: 0.9%NACL 1000ML 1,000 ML IV SCH (05:34)
[2021-09-10] MEDS: LEVOTHYROXINE 100 MCG TABLET PO SCH (05:35)
[2021-09-10] MEDS: FUROSEMIDE 40MG VIAL IV SCH (05:36)
[2021-09-10 05:55] LABS: MAGNESIUM 1.7 mg/dL (1.80-2.40); PHOSPHORUS 6.1 mg/dL (2.5-4.9)
[2021-09-10 07:15] VITALS: BP 190/95
[2021-09-10 08:13] VITALS: BP 147/79
[2021-09-10] MEDS ORDERED: PREDNISONE 20 MG TABLET PO SCH (09:00)
[2021-09-10] MEDS ORDERED: ISOSORBIDE MONO 30MG SR TAB PO SCH (09:00)
[2021-09-10] MEDS ORDERED: FUROSEMIDE 40 MG TABLET PO SCH (09:00)
[2021-09-10] MEDS ORDERED: CEFT1VIA14 IVP (09:07)
[2021-09-10] MEDS ORDERED: PRED20B PO (09:07)
[2021-09-10] MEDS ORDERED: HYDR-4153 PO (09:07)
[2021-09-10] MEDS ORDERED: AMLO-257 PO (09:07)
[2021-09-10] MEDS ORDERED: ISOS30TA92 PO (09:07)
[2021-09-10] MEDS: PANTOPRAZOLE 40 MG TAB DR PO SCH (09:15)
[2021-09-10] MEDS: FAMOTIDINE 20MG TAB PO SCH (09:16)
[2021-09-10] MEDS: FERROUS GLUCONATE 325 MG TABLET PO SCH (09:16)
[2021-09-10] MEDS: AMLODIPINE 5 MG TAB PO SCH (09:16)
[2021-09-10] MEDS: HONEY 1 APPL/ML TUBE TP SCH (09:18)
[2021-09-10] MEDS: TRIAMCINOLONE ACETONIDE 0.1% CREAM 15GM TP SCH (09:19)
[2021-09-10] MEDS: SODIUM BICARBONATE 650 MG TAB PO SCH ×2 (09:19→14:13)
[2021-09-10] MEDS: HEPARIN 5,000 UNIT VIAL SQ SCH (09:25)
[2021-09-10 11:20] VITALS: BP 173/86
[2021-09-10] MEDS: SOLU-MEDROL 125MG VIAL IVP SCH (13:30)
[2021-09-10] MEDS: CEFTRIAXONE 1G VIAL IVP SCH (14:13)
[2021-09-10] MEDS ORDERED: HYDRALAZINE 25MG TABLET PO SCH (21:00)
== END 2021-09-10 17:00 | DRG 683 ==
LOC: EDH 21:58 → EDHIP 09-07 03:53 → 3AH 09-07 18:16
PROVIDERS: ADMIT Internal Medicine; ATTEND Internal Medicine
DX: N17.9 Acute kidney failure, unspecified (principal); N39.0 Urinary tract infection, site not specified; E46 Unspecified protein-calorie malnutrition; C79.51 Secondary malignant neoplasm of bone; D84.821 Immunodeficiency due to drugs; E87.2 Acidosis; G81.10 Spastic hemiplegia affecting unspecified side; G95.29 Other cord compression; L12.0 Bullous pemphigoid; L97.409 Non-pressure chronic ulcer of unspecified heel and midfoot with unspecified severity; Z16.12 Extended spectrum beta lactamase (ESBL) resistance; N18.9 Chronic kidney disease, unspecified; E87.5 Hyperkalemia; I12.9 Hypertensive chronic kidney disease with stage 1 through stage 4 chronic kidney disease, or unspecified chronic kidney disease; Z68.25 Body mass index [BMI] 25.0-25.9, adult; Z20.822 Contact with and (suspected) exposure to COVID-19; D50.9 Iron deficiency anemia, unspecified; D63.8 Anemia in other chronic diseases classified elsewhere; D69.6 Thrombocytopenia, unspecified; E03.9 Hypothyroidism, unspecified; E78.2 Mixed hyperlipidemia; G47.33 Obstructive sleep apnea (adult) (pediatric); I25.10 Atherosclerotic heart disease of native coronary artery without angina pectoris; I70.0 Atherosclerosis of aorta; K21.9 Gastro-esophageal reflux disease without esophagitis; M51.9 Unspecified thoracic, thoracolumbar and lumbosacral intervertebral disc disorder; N28.1 Cyst of kidney, acquired; N31.9 Neuromuscular dysfunction of bladder, unspecified; T45.1X5A Adverse effect of antineoplastic and immunosuppressive drugs, initial encounter; Y92.89 Other specified places as the place of occurrence of the external cause; Z88.5 Allergy status to narcotic agent; Z88.8 Allergy status to other drugs, medicaments and biological substances; Z79.899 Other long term (current) drug therapy; Z92.3 Personal history of irradiation; Z90.5 Acquired absence of kidney; Z87.891 Personal history of nicotine dependence; Z87.440 Personal history of urinary (tract) infections; Z87.442 Personal history of urinary calculi; Z85.528 Personal history of other malignant neoplasm of kidney; Z85.46 Personal history of malignant neoplasm of prostate; Z86.73 Personal history of transient ischemic attack (TIA), and cerebral infarction without residual deficits; Z83.3 Family history of diabetes mellitus; Z82.49 Family history of ischemic heart disease and other diseases of the circulatory system; Z80.9 Family history of malignant neoplasm, unspecified
CPT/HCPCS: 36415; 71045; 76770; 80048; 80053; 81001; 82728; 83540; 83550; 83605; 83735; 84100; 84443; 84484; 84550; 85025; 85027; 87040; 87070; 87076; 87077; 87088; 87186; 87635; 87804; 92610; 97039; C9803; G0378; J0696; J1644; J1756; J1940; J2543; J2930; J7030

== ENCOUNTER 2021-09-27 16:02 | Emergency (ER) | payer MEDICARE ==
[~2021-09-27] VITALS: Ht 167.6 cm; Wt 72.6 kg
[~2021-09-27 16:02] MED LIST changes: +AMLO-257 PO; -AMLODIPINE PO; +ASCO500T20 PO; -BISA10S PR; +CEFT1VIA14 IVP; -CPAP NASAL; +FOLI-74 PO; -KEYTRUDA IV; -LACT10SO5 PO; +LACT10SO62 PO; -LENV4CAP PO; -LEVO500T89 PO; +PRED20B PO; -SULF1TAB42 PO
[2021-09-27 16:41] LABS: EOSINOPHILS % (AUTO) 0.2 % (0.0-8.0); HEMATOCRIT 31.7 % (42-54); LYMPHOCYTES % (AUTO) 3.1 % (21.0-51.0); MEAN CORPUSCULAR HEMOGLOBIN 30.7 pg (27.0-33.0); MEAN CORPUSCULAR HGB CONC 32.8 g/dL (32.0-36.0); MEAN CORPUSCULAR VOLUME 93.5 fL (79-99); MONOCYTES % (AUTO) 0.4 % (3.0-13.0); NEUTROPHILS % (AUTO) 95.8 % (40.0-77.0); PLATELET COUNT (AUTO) 177 K/uL (130-400); RED BLOOD CELL COUNT(AUTO) 3.39 MIL/uL (4.50-6.20); RED CELL DISTRIBUTION WIDTH 13.7 % (11.0-15.5); WHITE BLOOD COUNT (AUTO) 8.5 K/uL (4.8-10.8)
[2021-09-27 16:47] LABS: APPEARANCE,URINE Cloudy (CLEAR); BILIRUBIN,URINE Negative (NEGATIVE); COLOR,URINE Yellow (YELLOW); GLUCOSE, URINE (UA) Negative (NEGATIVE); KETONES,URINE Negative (NEGATIVE); LEUKOCYTE ESTERASE ,URINE Small (NEGATIVE); NITRATE,URINE Negative (NEGATIVE); OCCULT BLOOD,URINE Negative (NEGATIVE); PH,URINE 5.5 (5.0-8.0); PROTEIN,URINE 300 mg/dL (NEGATIVE); UROBILINOGEN,URINE 0.2 mg/dL (0.2-1.0)
[2021-09-27 16:55] LABS: CREATININE 4.4 mg/dL (0.5-1.5); POTASSIUM 5.4 mmol/L (3.5-5.1)
[2021-09-27 16:59] LABS: ALBUMIN 2.8 g/dL (3.5-5.0); BILIRUBIN,TOTAL 0.4 mg/dL (0.2-1.0); CRP QUANTITATIVE 37.4 mg/L (0.00-9.0); TOTAL PROTEIN, SERUM 6.8 g/dL (6.0-8.3)
[2021-09-27 17:02] LABS: B-TYPE NATRIURETIC PEPTIDE 175 pg/mL (0-100)
[2021-09-27 17:12] LABS: BACTERIA,URINE Rare /HPF (None Seen); RBC,URINE 0-1 /HPF (0-1); YEAST,URINE BUDDING Moderate /HPF (None Seen)
[2021-09-27 17:13] LABS: SQUAMOUS EPITHELIAL CELL,UR Rare /HPF (0-2)
[2021-09-27] MEDS ORDERED: CEFTRIAXONE 1G VIAL IVP ONE (17:30)
[2021-09-27] MEDS ORDERED: FLUCONAZOLE 100 MG TAB PO ONE (17:30)
[2021-09-27] MEDS ORDERED: FLUC150T PO (17:53)
[2021-09-27] MEDS ORDERED: PRED20TA3 PO (17:53)
[2021-09-27 18:00] VITALS: BP 124/68
== END 2021-09-27 19:52 | disposition home or self-care (01) ==
LOC: EDH 16:02
DX: I63.9 Cerebral infarction, unspecified (principal); N28.9 Disorder of kidney and ureter, unspecified; D64.9 Anemia, unspecified; B37.49 Other urogenital candidiasis; L01.00 Impetigo, unspecified; Z88.6 Allergy status to analgesic agent; Z20.822 Contact with and (suspected) exposure to COVID-19
CPT/HCPCS: 36415; 71045; 80053; 81001; 83605; 83880; 84484; 85025; 86140; 87040 ×2; 87077; 87186; 87635; 87804 ×2; 93005; 96374; 99285; C9803; J0696

== ENCOUNTER → 2021-10-26 | Outpatient (CLI) | payer MEDICARE ==
[~2021-10-26] MED LIST changes: +FLUC150T PO; +LIDOCAINE HCL 4% LTA SOL 4 ML VIAL TP ONE; +PRED20TA3 PO
== END | disposition home or self-care (01) ==
LOC: WHH 09:32
PROVIDERS: ATTEND Family Medicine
DX: S90.821A Blister (nonthermal), right foot, initial encounter (principal); S51.002D Unspecified open wound of left elbow, subsequent encounter; S51.801D Unspecified open wound of right forearm, subsequent encounter; S80.821D Blister (nonthermal), right lower leg, subsequent encounter; I12.9 Hypertensive chronic kidney disease with stage 1 through stage 4 chronic kidney disease, or unspecified chronic kidney disease; N18.30 Chronic kidney disease, stage 3 unspecified; I70.0 Atherosclerosis of aorta; E03.9 Hypothyroidism, unspecified; E78.5 Hyperlipidemia, unspecified; G82.50 Quadriplegia, unspecified; R26.89 Other abnormalities of gait and mobility; K21.9 Gastro-esophageal reflux disease without esophagitis; M86.8X8 Other osteomyelitis, other site; M79.89 Other specified soft tissue disorders; Z90.5 Acquired absence of kidney; Z85.46 Personal history of malignant neoplasm of prostate; Z87.891 Personal history of nicotine dependence; Z85.118 Personal history of other malignant neoplasm of bronchus and lung; Z85.830 Personal history of malignant neoplasm of bone; Z85.528 Personal history of other malignant neoplasm of kidney; Z98.890 Other specified postprocedural states; Z79.899 Other long term (current) drug therapy; X58.XXXD Exposure to other specified factors, subsequent encounter; X58.XXXA Exposure to other specified factors, initial encounter; Y93.89 Activity, other specified; Y92.89 Other specified places as the place of occurrence of the external cause; Y99.8 Other external cause status
CPT/HCPCS: 11042; A6212

== ENCOUNTER 2021-11-10 20:15 | Inpatient (IN) | payer MEDICARE ==
[~2021-11-10] VITALS: Ht 167.6 cm; Wt 78.3 kg
[~2021-11-10 20:15] MED LIST changes: -LIDOCAINE HCL 4% LTA SOL 4 ML VIAL TP ONE
[2021-11-10] MEDS ORDERED: 0.9%NACL 1000ML 1,000 ML IV ONE (21:00)
[2021-11-10 21:27] LABS: BASOPHILS % (AUTO) 0.1 % (0.0-5.0); EOSINOPHILS % (AUTO) 0.4 % (0.0-8.0); HEMATOCRIT 31.8 % (42-54); LYMPHOCYTES % (AUTO) 10.9 % (21.0-51.0); MEAN CORPUSCULAR HEMOGLOBIN 29.9 pg (27.0-33.0); MEAN CORPUSCULAR HGB CONC 36.2 g/dL (32.0-36.0); MEAN CORPUSCULAR VOLUME 82.8 fL (79-99); MONOCYTES % (AUTO) 4.5 % (3.0-13.0); NEUTROPHILS % (AUTO) 83.7 % (40.0-77.0); PLATELET COUNT (AUTO) 142 K/uL (130-400); RED BLOOD CELL COUNT(AUTO) 3.84 MIL/uL (4.50-6.20); RED CELL DISTRIBUTION WIDTH 13.4 % (11.0-15.5); WHITE BLOOD COUNT (AUTO) 7.1 K/uL (4.8-10.8)
[2021-11-10 21:39] LABS: ALBUMIN 3.1 g/dL (3.5-5.0); BILIRUBIN,TOTAL 0.4 mg/dL (0.2-1.0); CREATININE 3.2 mg/dL (0.5-1.5); POTASSIUM 4.8 mmol/L (3.5-5.1); TOTAL PROTEIN, SERUM 6.4 g/dL (6.0-8.3)
[2021-11-10 21:46] LABS: B-TYPE NATRIURETIC PEPTIDE 186 pg/mL (0-100)
[2021-11-10 22:29] LABS: APPEARANCE,URINE Cloudy (CLEAR); BILIRUBIN,URINE Negative (NEGATIVE); COLOR,URINE Yellow (YELLOW); GLUCOSE, URINE (UA) Negative (NEGATIVE); KETONES,URINE Negative (NEGATIVE); LEUKOCYTE ESTERASE ,URINE Moderate (NEGATIVE); NITRATE,URINE Negative (NEGATIVE); OCCULT BLOOD,URINE Small (NEGATIVE); PH,URINE 5.5 (5.0-8.0); PROTEIN,URINE 300 mg/dL (NEGATIVE); UROBILINOGEN,URINE 0.2 mg/dL (0.2-1.0)
[2021-11-10 22:40] LABS: BACTERIA,URINE Few /HPF (None Seen); SQUAMOUS EPITHELIAL CELL,UR Few /HPF (0-2); WBC,URINE TNTC /HPF (0-1)
[2021-11-10 22:42] LABS: OTHER CASTS, URINE MIXED CELL CASTS 1+ /LPF (None Seen); RENAL EPITHELIAL CELLS,URINE Few /HPF (None Seen)
[2021-11-10] MEDS ORDERED: LEVOFLOXACIN 750 MG/D5W 150 ML 150 ML ONE (23:32)
[2021-11-11] MEDS ORDERED: ONDANSETRON 4MG INJ IVP PRN (00:30)
[2021-11-11] MEDS ORDERED: ACETAMINOPHEN 325 MG TAB PO PRN ×4 (00:30→03:30)
[2021-11-11] MEDS: 0.9%NACL 1000ML 1,000 ML IV SCH ×3 (01:57→18:12)
[2021-11-11] MEDS: ZOSYN 3.375GM+NS 50ML 50 ML IV SCH ×2 (01:57→12:47)
[2021-11-11] MEDS ORDERED: POTASSIUM CHLORIDE 20MEQ/100ML 100 ML IV PRN ×2 (03:30)
[2021-11-11] MEDS ORDERED: KCL 20 MEQ ERTAB PO PRN (03:30)
[2021-11-11] MEDS ORDERED: PANTOPRAZOLE 40 MG TAB DR PO PRN (03:30)
[2021-11-11] MEDS ORDERED: DiphenhydrAMINE HCL 50 MG/ML VIAL IV PRN (03:30)
[2021-11-11] MEDS ORDERED: BACLOFEN 10 MG TABLET PO PRN (03:30)
[2021-11-11] MEDS ORDERED: LIDOCAINE HCL-MPF 1% 2ML VIAL IV PRN ×2 (03:30)
[2021-11-11] MEDS ORDERED: CLONIDINE HCL 0.1 MG TABLET PO PRN (03:30)
[2021-11-11] MEDS ORDERED: DIPHENHYDRAMINE HCL 25 MG CAPSULE PO PRN (03:30)
[2021-11-11] MEDS ORDERED: POTASSIUM CHLORIDE 10% ELIXIR 20 MEQ/15 ML UDCUP PO PRN (03:30)
[2021-11-11] MEDS ORDERED: LACTULOSE 20 GM/30 ML UDCUP PO PRN (03:30)
[2021-11-11] MEDS ORDERED: ONDANSETRON 4MG INJ IV PRN (03:30)
[2021-11-11 08:04] LABS: HEMATOCRIT 24.4 % (42-54); MEAN CORPUSCULAR HEMOGLOBIN 30.2 pg (27.0-33.0); MEAN CORPUSCULAR HGB CONC 36.9 g/dL (32.0-36.0); MEAN CORPUSCULAR VOLUME 81.9 fL (79-99); RED BLOOD CELL COUNT(AUTO) 2.98 MIL/uL (4.50-6.20); RED CELL DISTRIBUTION WIDTH 13.3 % (11.0-15.5); WHITE BLOOD COUNT (AUTO) 5.5 K/uL (4.8-10.8)
[2021-11-11 08:19] LABS: POTASSIUM 4.3 mmol/L (3.5-5.1)
[2021-11-11] MEDS ORDERED: AMOX-429 PO (08:52)
[2021-11-11] MEDS ORDERED: CPAP NASAL (08:52)
[2021-11-11] MEDS ORDERED: PEMB100V IV (08:52)
[2021-11-11] MEDS ORDERED: FURO40TA5 PO (08:52)
[2021-11-11] MEDS ORDERED: LENV14CA PO (08:53)
[2021-11-11] MEDS ORDERED: LEVOFLOXACIN 750 MG/D5W 150 ML 150 ML IV ONE (09:00)
[2021-11-11] MEDS: ENOXAPARIN SODIUM 30 MG/0.3 ML SQ SCH (09:00)
[2021-11-11] MEDS: OXYBUTYNIN 5 MG TAB.SR.24H PO SCH ×2 (09:00→12:00)
[2021-11-11] MEDS: AMLODIPINE 5 MG TAB PO SCH ×2 (09:23→21:07)
[2021-11-11] MEDS: DOCUSATE SODIUM 100 MG CAP PO SCH ×2 (09:23→21:08)
[2021-11-11] MEDS: ASCORBIC ACID 500 MG TAB PO SCH ×2 (09:23→21:07)
[2021-11-11] MEDS: BISACODYL 10 MG SUPP.RECT RC SCH (09:23)
[2021-11-11] MEDS: SODIUM BICARBONATE 650 MG TAB PO SCH ×2 (09:23→21:07)
[2021-11-11] MEDS: FERROUS SULFATE 325 MG TABLET.DR PO SCH (09:23)
[2021-11-11] MEDS: LACTULOSE 20 GM/30 ML UDCUP PO SCH ×2 (09:23→21:07)
[2021-11-11] MEDS: HYDRALAZINE 25MG TABLET PO SCH ×2 (09:23→21:08)
[2021-11-11] MEDS: ISOSORBIDE MONO 30MG SR TAB PO SCH ×2 (09:23→21:07)
[2021-11-11] MEDS: FE FUMARATE/FA/MV, MIN COMB#15 1 TAB PO SCH (10:26)
[2021-11-11] MEDS: LEVOTHYROXINE 100 MCG TABLET PO SCH (10:26)
[2021-11-11 16:08] VITALS: BP 147/71
[2021-11-11 20:00] VITALS: BP 158/78
[2021-11-11] MEDS ORDERED: NON-FORMULARY MEDICATION 1 EACH (Dutasteride 0.5 MG) PO SCH (21:00)
[2021-11-11] MEDS: FINASTERIDE 5 MG TABLET PO SCH (21:07)
[2021-11-11] MEDS: SIMVASTATIN 20 MG TABLET PO SCH (21:08)
[2021-11-11 23:49] VITALS: BP 120/56
[2021-11-12] MEDS: ZOSYN 3.375GM+NS 50ML 50 ML IV SCH ×2 (00:30→12:28)
[2021-11-12] MEDS: 0.9%NACL 1000ML 1,000 ML IV SCH ×3 (00:30→18:11)
[2021-11-12 04:00] VITALS: BP 148/74
[2021-11-12] MEDS: LEVOTHYROXINE 100 MCG TABLET PO SCH (05:37)
[2021-11-12 07:32] VITALS: BP 149/65
[2021-11-12] MEDS: SODIUM BICARBONATE 650 MG TAB PO SCH ×2 (08:36→21:25)
[2021-11-12] MEDS: HYDRALAZINE 25MG TABLET PO SCH ×2 (08:37→21:25)
[2021-11-12] MEDS: DOCUSATE SODIUM 100 MG CAP PO SCH ×2 (08:37→21:24)
[2021-11-12] MEDS: OXYBUTYNIN 5 MG TAB.SR.24H PO SCH (08:37)
[2021-11-12] MEDS: FE FUMARATE/FA/MV, MIN COMB#15 1 TAB PO SCH (08:37)
[2021-11-12] MEDS: FERROUS SULFATE 325 MG TABLET.DR PO SCH (08:38)
[2021-11-12] MEDS: AMLODIPINE 5 MG TAB PO SCH ×2 (08:38→21:25)
[2021-11-12] MEDS: ASCORBIC ACID 500 MG TAB PO SCH ×2 (08:38→21:24)
[2021-11-12] MEDS: ISOSORBIDE MONO 30MG SR TAB PO SCH ×2 (08:38→21:24)
[2021-11-12] MEDS: ENOXAPARIN SODIUM 30 MG/0.3 ML SQ SCH (08:39)
[2021-11-12] MEDS: LACTULOSE 20 GM/30 ML UDCUP PO SCH ×2 (08:39→21:23)
[2021-11-12 09:48] LABS: BASOPHILS % (AUTO) 0.5 % (0.0-5.0); EOSINOPHILS % (AUTO) 2.5 % (0.0-8.0); HEMATOCRIT 24.9 % (42-54); LYMPHOCYTES % (AUTO) 13.2 % (21.0-51.0); MEAN CORPUSCULAR HEMOGLOBIN 30.4 pg (27.0-33.0); MEAN CORPUSCULAR HGB CONC 36.1 g/dL (32.0-36.0); MEAN CORPUSCULAR VOLUME 84.1 fL (79-99); NEUTROPHILS % (AUTO) 77.5 % (40.0-77.0); PLATELET COUNT (AUTO) 92 K/uL (130-400); RED BLOOD CELL COUNT(AUTO) 2.96 MIL/uL (4.50-6.20); RED CELL DISTRIBUTION WIDTH 13.7 % (11.0-15.5)
[2021-11-12 10:10] LABS: ALBUMIN 2.1 g/dL (3.5-5.0); BILIRUBIN,TOTAL 0.3 mg/dL (0.2-1.0); CREATININE 3.3 mg/dL (0.5-1.5); POTASSIUM 3.9 mmol/L (3.5-5.1); TOTAL PROTEIN, SERUM 4.6 g/dL (6.0-8.3)
[2021-11-12 11:49] VITALS: BP 149/79
[2021-11-12] MEDS ORDERED: PRED5TAB PO (14:46)
[2021-11-12] MEDS ORDERED: LEVO500T90 PO (14:46)
[2021-11-12] MEDS ORDERED: FUROSEMIDE 40MG VIAL IV ONE ×2 (15:00→18:30)
[2021-11-12] MEDS ORDERED: FUROSEMIDE 40MG VIAL IV SCH (15:00)
[2021-11-12] MEDS: PREDNISONE 5 MG TABLET PO SCH (15:39)
[2021-11-12 16:05] VITALS: BP 135/63
[2021-11-12 19:00] VITALS: BP 148/63
[2021-11-12] MEDS: FINASTERIDE 5 MG TABLET PO SCH (21:25)
[2021-11-12] MEDS: SIMVASTATIN 20 MG TABLET PO SCH (21:25)
[2021-11-13] VITALS: BP 150/68
[2021-11-13] MEDS: ZOSYN 3.375GM+NS 50ML 50 ML IV SCH (00:03)
[2021-11-13] MEDS: 0.9%NACL 1000ML 1,000 ML IV SCH ×2 (00:31→08:44)
[2021-11-13 04:00] VITALS: BP 139/63
[2021-11-13] MEDS: LEVOTHYROXINE 100 MCG TABLET PO SCH (05:23)
[2021-11-13 06:08] LABS: BASOPHILS % (AUTO) 0.2 % (0.0-5.0); EOSINOPHILS % (AUTO) 2.5 % (0.0-8.0); HEMATOCRIT 22.6 % (42-54); LYMPHOCYTES % (AUTO) 13.9 % (21.0-51.0); MEAN CORPUSCULAR HEMOGLOBIN 30.3 pg (27.0-33.0); MEAN CORPUSCULAR HGB CONC 35.8 g/dL (32.0-36.0); MEAN CORPUSCULAR VOLUME 84.6 fL (79-99); MONOCYTES % (AUTO) 4.8 % (3.0-13.0); NEUTROPHILS % (AUTO) 78.2 % (40.0-77.0); PLATELET COUNT (AUTO) 98 K/uL (130-400); RED BLOOD CELL COUNT(AUTO) 2.67 MIL/uL (4.50-6.20); RED CELL DISTRIBUTION WIDTH 14.2 % (11.0-15.5); WHITE BLOOD COUNT (AUTO) 5.7 K/uL (4.8-10.8)
[2021-11-13 06:34] LABS: CREATININE 3.5 mg/dL (0.5-1.5)
[2021-11-13 07:53] VITALS: BP 132/62
[2021-11-13] MEDS: AMLODIPINE 5 MG TAB PO SCH (08:42)
[2021-11-13] MEDS: ASCORBIC ACID 500 MG TAB PO SCH (08:42)
[2021-11-13] MEDS: HYDRALAZINE 25MG TABLET PO SCH (08:42)
[2021-11-13] MEDS: PREDNISONE 5 MG TABLET PO SCH (08:42)
[2021-11-13] MEDS: ISOSORBIDE MONO 30MG SR TAB PO SCH (08:42)
[2021-11-13] MEDS: SODIUM BICARBONATE 650 MG TAB PO SCH (08:42)
[2021-11-13] MEDS: FE FUMARATE/FA/MV, MIN COMB#15 1 TAB PO SCH (08:42)
[2021-11-13] MEDS: FERROUS SULFATE 325 MG TABLET.DR PO SCH (08:43)
[2021-11-13] MEDS: LACTULOSE 20 GM/30 ML UDCUP PO SCH (08:43)
[2021-11-13] MEDS: OXYBUTYNIN 5 MG TAB.SR.24H PO SCH (08:43)
[2021-11-13] MEDS: DOCUSATE SODIUM 100 MG CAP PO SCH (08:45)
[2021-11-13] MEDS: BISACODYL 10 MG SUPP.RECT RC SCH (09:00)
[2021-11-13] MEDS ORDERED: CYANOCOBALAMIN (VITAMIN B-12) 1000 MCG/ML 1ML VIAL IM SCH (11:30)
[2021-11-13 12:12] VITALS: BP 143/58
== END 2021-11-13 15:36 | disposition home or self-care (01) | DRG 690 ==
LOC: EDH 20:15 → OBSVTOIN 23:49 → EDHIP 23:49 → 3DH 11-11 16:08
PROVIDERS: ADMIT Internal Medicine; ATTEND Internal Medicine
DX: N39.0 Urinary tract infection, site not specified (principal); E87.1 Hypo-osmolality and hyponatremia; D84.821 Immunodeficiency due to drugs; G81.10 Spastic hemiplegia affecting unspecified side; G95.29 Other cord compression; L10.9 Pemphigus, unspecified; L12.0 Bullous pemphigoid; L97.409 Non-pressure chronic ulcer of unspecified heel and midfoot with unspecified severity; N18.4 Chronic kidney disease, stage 4 (severe); Z16.12 Extended spectrum beta lactamase (ESBL) resistance; E86.1 Hypovolemia; E86.0 Dehydration; E87.8 Other disorders of electrolyte and fluid balance, not elsewhere classified; D63.8 Anemia in other chronic diseases classified elsewhere; D69.6 Thrombocytopenia, unspecified; T45.1X5A Adverse effect of antineoplastic and immunosuppressive drugs, initial encounter; E03.9 Hypothyroidism, unspecified; E78.2 Mixed hyperlipidemia; G47.33 Obstructive sleep apnea (adult) (pediatric); I12.9 Hypertensive chronic kidney disease with stage 1 through stage 4 chronic kidney disease, or unspecified chronic kidney disease; I70.0 Atherosclerosis of aorta; K21.9 Gastro-esophageal reflux disease without esophagitis; M51.9 Unspecified thoracic, thoracolumbar and lumbosacral intervertebral disc disorder; D50.0 Iron deficiency anemia secondary to blood loss (chronic); N31.9 Neuromuscular dysfunction of bladder, unspecified; T38.0X5A Adverse effect of glucocorticoids and synthetic analogues, initial encounter; Y92.89 Other specified places as the place of occurrence of the external cause; Z79.52 Long term (current) use of systemic steroids; Z88.5 Allergy status to narcotic agent; Z88.8 Allergy status to other drugs, medicaments and biological substances; Z79.899 Other long term (current) drug therapy; Z92.3 Personal history of irradiation; Z87.442 Personal history of urinary calculi; Z87.440 Personal history of urinary (tract) infections; Z85.528 Personal history of other malignant neoplasm of kidney; Z85.46 Personal history of malignant neoplasm of prostate; Z83.3 Family history of diabetes mellitus; Z80.9 Family history of malignant neoplasm, unspecified; Z82.49 Family history of ischemic heart disease and other diseases of the circulatory system; Z99.3 Dependence on wheelchair
CPT/HCPCS: 11042; 11045; 36415; 71045; 80048; 80053; 81001; 83605; 83690; 83880; 84484; 85025; 85027; 87040; 87077; 87088; 87186; 93005; A6212; G0378; J1650; J1940; J1956; J2543; J3420; J7030; J7512